=== PATIENT | female | born 1985 | race Caucasian/White ===

== ENCOUNTER 2024-04-07 09:07 | Outpatient (CLI) | payer OTHER, SELFPAY ==
--- NOTE | ~2024-04-07 | PE_ITS ---
EXAMINATION: PET skull to mid thigh DATE: 04/07/2024 11:17 INDICATION: Solitary pulmonary nodule. TECHNIQUE: Blood glucose level was 90 mg/dL. 10.285 mCi of 18-fluorodeoxyglucose (18-FDG) was adminis tered i.v. Low dose computed tomography (CT) images were acquired from the base of the brain to the p roximal thighs for attenuation correction and anatomic localization. Automated exposure control was e mployed. Dose-length product (DLP) was 633 mGy-cm. Positron emission tomography (PET) images were acq uired in the same distribution. COMPARISON: None FINDINGS: Head/neck: There are no pathologically enlarged lymph nodes. Chest: The lungs demonstrate mild atelectasis. There is a 9 mm nodule in right lung lower lobe with m aximum SUV of 1.6. No pleural effusion. The heart size is normal. No pericardial effusion. There are bilateral breast implants. There is a normal-sized right hilar lymph node with maximum SUV of 3.9. Abdomen/pelvis/proximal thighs: The liver, gallbladder, spleen, pancreas, adrenal glands, and kidneys are normal. There is an intrauterine device in expected position. There are no dilated loops of omar l. The appendix is normal. There are no pathologically enlarged lymph nodes. There is no free intrape ritoneal fluid. There is no osseous malignancy. IMPRESSION: 1. 9 mm nodule in right lung lower lobe without increased activity, probably benign. Noncontrast low- dose chest CT is recommended in 6 months. 2. Normal-sized right hilar lymph node with mildly increased activity, probably reactive. Reviewed, dictated and finalized at location A. IMPRESSION: 1. 9 mm nodule in right lung lower lobe without increased activity, probably be nign. Noncontrast low-dose chest CT is recommended in 6 months. 2. Normal-sized right hilar lymph node with mildly increased activity, probably reactive.
[2024-04-07 09:32] LABS: Glucose Point of Care 90 mg/dl (65-105)
== END 2024-04-07 09:08 | disposition home or self-care (01) ==
PROVIDERS: Visit Provider Internal Medicine Pulmonary Disease
DX: R91.1 Solitary pulmonary nodule (principal)
CPT/HCPCS: 78815; A9552

== ENCOUNTER 2025-01-28 09:12 | Outpatient (CLI) | payer OTHER, SELFPAY ==
--- NOTE | ~2025-01-28 | PE_ITS ---
EXAMINATION: PET skull to mid thigh DATE: 01/28/2025 10:53 INDICATION: Lung nodule TECHNIQUE: Blood glucose level was 90 mg/dL. 10.285 mCi of 18-fluorodeoxyglucose (18-FDG) was adminis tered i.v. Low dose computed tomography (CT) images were acquired from the base of the brain to the p roximal thighs for attenuation correction and anatomic localization. Positron emission tomography (PE T) images were acquired in the same distribution beginning 52 minutes after injection. Images includi ng fused PET/CT images were reconstructed in axial, coronal, and sagittal planes. Automated exposure control technique was employed. The dose-length product was 523.30mGy-cm. COMPARISON: None FINDINGS: Head/neck: There is symmetric increased activity in the oral cavity, palatine tonsils, parotid glands, submandi bular glands, laryngeal muscles and ocular muscles without CT correlate, likely physiologic. No patho logically enlarged cervical lymphadenopathy or suspicious foci of increased FDG uptake in the visuali zed head or neck. Chest: Mild dependent atelectasis in bilateral lower lobes. No interval change in a 10 x 8 mm pleural-based right lower lobe nodule along the apex of the dome of the right hemidiaphragm which remains without F DG uptake discernible above the level of the diaphragm. Heart size is normal. No pericardial effusion . Thoracic aorta is normal in caliber. Bilateral breast implants. Unchanged <1 cm focus of increased FDG uptake with maximal SUV of 5.3 at the right hilum likely related to a normal sized right hilar ly mph node. No pathologically enlarged or other abnormal FDG avid thoracic lymphadenopathy. Abdomen/pelvis/proximal thighs: Physiologic renal accumulation and excretion of FDG activity in the kidneys, bladder and along portio ns of ureters. Normal degree and heterogenous pattern of increased uptake throughout the liver withou t radiologic correlate or dominant FDG avid lesion. The gallbladder, pancreas, spleen and bilateral a drenal glands are normal. Again seen is a T-shaped IUD in expected position within the anteverted landy stephanie. Approximately 1.5 cm focus of mild increased uptake with maximal SUV of 9.5 located medial to th e left external iliac vein which appears separate from the more posterior left ovary. The lesion abut s and is unable to be clearly distinguish from the vein and uterine fundus with differential includin g enlarged lymph node or uterine fibroid. Mild uptake scattered throughout the bowels without radiolo gic correlate, also likely physiologic. No other abnormal foci of increased FDG uptake or pathologica lly enlarged lymphadenopathy in the abdomen, pelvis or proximal thighs. Musculoskeletal: No suspicious lytic, blastic or abnormally FDG avid bone lesions to suggest metastatic disease. IMPRESSION: 1. No increased uptake associated with an unchanged 9 mm pleural-based right lower lobe nodule along the right hemidiaphragm. While this is reassuring and strongly favors benign sequela of old granuloma tous disease would recommend additional 1 year follow-up low-dose noncontrast chest CT. 2. Persistent mild increased uptake associated with a normal-sized right hilar lymph node which is li edilberto reactive. 3. New proximally 1.5 cm focus of moderate increased uptake in the left pelvis abutting the left side of the uterine fundus and the left external iliac vein which could represent a lymph node or uterine fibroid. If the former differential would include reactive lymph node, metastatic disease or lymphom a. Could consider further evaluation with pelvic ultrasound or postcontrast CT or MRI. Reviewed, dictated and finalized at location A. IMPRESSION: 1. No increased uptake associated with an unchanged 9 mm pleural-based right lo wer lobe nodule along the right hemidiaphragm. While this is reassuring and str ongly favors benign sequela of old granulomatous disease would recommend additi onal 1 year follow-up low-dose noncontrast chest CT. 2. Persistent mild increased uptake associated with a normal-sized right hilar lymph node which is likely reactive. 3. New proximally 1.5 cm focus of moderate increased uptake in the left pelvis abutting the left side of the uterine fundus and the left external iliac vein w hich could represent a lymph node or uterine fibroid. If the former differentia l would include reactive lymph node, metastatic disease or lymphoma. Could cons ider further evaluation with pelvic ultrasound or postcontrast CT or MRI.
--- OUTSIDE RECORDS SUMMARY | 2025-01-28 09:35 | XMS_ITS | Clinical Summary ---
Author Organization [facility] Address [address] [place] [id number] Care Team Providers Care Material Worker Name Role Phone Nikko Olmedo Primary Care Provide r Allergies No known active allergies Medications No known medications Active Problems No known active problems Social History Tobacco Use Types Packs/Day Years Used Date Smoking Tobacco: Some Days Cigarettes Vaping Tobacco Cessation:Ready to Q uit: Not Asked; Counseling Given: Not Answered Personal Safety Answer Date Recorded Getting School Help Needed Not on file 10/21 Comments Unknown Sex and Gender Information Value Date Recorded Sex Assigned at Not on file Legal Sex Female 9:25 AM CDT Gender Identity Not on file Sexual Orientation Not on file Obstetrics History Last Filed Vital Signs Vital Sign Reading Time Taken Comments Blood Pressure 112/71 11/05/2023 10:17 AM CDT Pulse 93 11/05/2023 10:17 AM CDT Temperature - - Respiratory Rate - - Oxygen Saturation 96% 11/05/2023 10:17 AM CDT Inhaled Oxygen Concentration - - Weight - - Height - - Body Mass Index - - Plan of Treatment Health Maintenance Due Date Last Done Comments Breast Cancer Screening-Mammogram 1984 Cervical Cancer Screening 1984 Depression Screening 1984 Hepatitis C Screening 1984 DTaP/Tdap/Td Vaccine (1 - Tdap) 09/08/1995 Varicella Vaccines (1 of 2 - 13+ 2-dose series) 1997 Hepatitis B Screening 2002 Regular Well Visit/Exam 18-64 2002 Pneumococcal vaccine <65 (1 of 2 - PCV) 09/08/2003 HPV Vaccines (1 - 3-dose SCDM series) 09/08/2011 Covid-19 Vaccine ( season) 03/01/202408/2020, 12/03/2020 Influenza Vaccine (#1) 2025 Insurance [facility] Care Teams Material Worker Relationship Specialty Start Date End Date Nikko Olmedo PA [address] [place] [address] PCP - General Physician Lockstitch Collar Setter 10/22/23
--- OUTSIDE RECORDS SUMMARY | 2025-01-28 09:35 | XMS_ITS | Referral Summary ---
Author Organization [address] [id number] Care Team Providers Care Financial Economist Name Role Phone Nikko Olmedo Primary Care [...] on file Sexual Orientation Not on file Last Filed Vital Signs Vital Sign Reading Time Taken Comments Blood Pressure 112/71 11/05/2023 10:17 AM CDT Pulse 93 11/05/2023 10:17 AM CDT Temperature - - Respiratory Rate - - Oxygen Saturation 96% 11/05/2023 10:17 AM CDT Inhaled Oxygen Concentration - - Weight - - Height - - Body Mass Index - - Plan of Treatment Not on file Insurance [facility] Care Teams Financial Economist Relationship Specialty Start Date End Date Nikko Olmedo PA [address] [place] [address] PCP - General Physician Still Operator Helper 10/22/23
--- OUTSIDE RECORDS SUMMARY | 2025-01-28 09:36 | XMS_ITS ---
2017 1353 ------- ------- ------- ------- -- CAC/DJO /APPT FOR MEDS REFILL JEANNIE ENRIQUEZ 10/17 [employer](T roop_AD Only) [facility](BOM C 1 Phys Exams) OUTPATIENT [id number] MHA 201 2001 PHIL BATEMAN 10/22 Released w/o Limitations [employer](B OMC 1 Phys Exams) [facility](Tro op_AD Only) OUTPATIENT [id number] PRESTON FUENTES 10/22 Released w/o Limitations [facility](T roop_AD Only) [facility](Tro op_AD Only) TELE CONSULT [id number] Notes Entered by: ANN JETT 03 Jan 2018 0815 ------- ------- ------- ------- -- CAC/DJO /MED REFILL 16 DAYS LEFT PAWAN VALDEZ 01/03 [facility](T roop_AD Only) [facility](Jose Antonio eficiarie s_Non-AD Only) OUTPATIENT [id number] F/U MEDICAT ION UPDATE PROFILE EDDIE GOLDMAN 02/07 Released with Work/Duty Limitations [facility](B enefici aries_N on-AD Only) [facility](Jose Antonio eficiarie s_Non-AD Only) OUTPATIENT [id number] Routine RX follow up for refill EDDIE GOLDMAN 03/14 Released w/o Limitations [facility](B enefici aries_N on-AD Only) [facility](BOM C 1 Phys Exams) OUTPATIENT [id number] dhra 1 PHIL BATEMAN 03/25 Released w/o Limitations [facility](B OMC 1 Phys Exams) [facility](Jose Antonio eficiarie s_Non-AD Only) OUTPATIENT [id number] To be cleared pre-dep loyment EDDIE GOLDMAN 04/09 Released w/o Limitations [facility](B enefici aries_N on-AD Only) [facility](Curriculum Development Coordinator [facility]) OUTPATIENT [id number] Pap-Pre deploym ent LAILA ABDUL Kimani 04/29 Released w/o Limitations [facility](G ynecolo gy [facility]) [facility](Curriculum Development Coordinator [facility]) TELE CONSULT [id number] Notes Entered by: DO SILVIA GOFF 14 May 2018 1448 ------- ------- ------- ------- -- Repeat PAP ISABELLA GOFF 05/14 [employer](G y[facility]colo [facility] Clinic) [facility](Jose Antonio eficiarie s_Non-AD Only) OUTPATIENT [id number] Routine 3 month appt for prescri ption (deploy ing Jun 17) EDDIE GOLDMAN 06/13 Released w/o Limitations [facility](B enefici aries_N on-AD Only) [facility](Jose Antonio eficiarie s_Non-AD Only) TELE CONSULT [id number] 1 Notes Entered by: Rigo CONLEY 26 Jun 2018 0905 ------- ------- ------- ------- -- Virtual comm/ express LETICIA Wood 06/26 Referred for Appointment [facility](B enefici aries_N on-AD Only) [facility] OUTPATIENT [id number] Theater Provider 07/04 Released w/o Limitations [facility] OUTPATIENT [id number] Theater Provider 08/14 Released w/o Limitations [facility] OUTPATIENT [id number] Theater Provider 09/06 Released w/o Limitations [facility] OUTPATIENT [id number] Theater Provider 10/06 Released w/o Limitations Theater Facilit y [facility](Tro op_AD Only) OUTPATIENT [id number] Follow up for Medicat ion (Routin e) Napoleoni sandhya from deploym angela DERIK LUANN Sierar 11/05 Released w/o Limitations [facility](T roop_AD Only) [facility](Tro op_AD Only) TELE CONSULT [id number] Notes Entered by: JAYLIN HARLEY 13 Jan 2019 1018 ------- ------- ------- ------- -- CAC/KCH //ADHD- MED REFILLS -15 DAYS LEFT NANCY FUENTES 01/13 Released w/o Limitations [facility](T roop_AD Only) [facility](BOM C 1 Phys Exams) OUTPATIENT [id number] PHIL BATEMAN 02/05 Released w/o Limitations [facility](B [facility] 1 Phys Exams) [facility](Tro op_AD Only) OUTPATIENT [id number] Notes Entered by: ALBERTO OAKES 06 Feb 2019 1001 ------- ------- ------- ------- -- Z-PHAQ NANCY FUENTES 02/06 Released w/o Limitations [facility](T roop_AD Only) [facility](Tro op_AD Only) OUTPATIENT [id number] F/U MEDS NANCY FUENTES 04/27 Released w/o Limitations [facility](T roop_AD Only) [facility](Tro op_AD Only) OUTPATIENT [id number] HEADACH E/RUNNY NOSE/CO CHRIS SILVEIRA 06/08 Sick at Home/Quarter s [facility](T roop_AD Only) [facility](Tro op_AD Only) TELE CONSULT [id number] Notes Entered by: EMANUEL HARRY 21 Jul 2019 1105 ------- ------- ------- ------- -- CAC/DB/ MED REFILL/ 6 DAYS LEFT NANCY FUENTES 07/21 [facility](T roop_AD Only) [facility](Tro op_AD Only) TELE CONSULT [id number] Notes Entered by: Raymond GARCIA 22 Jul 2019 1600 ------- ------- ------- ------- -- Medicat ion LETICIA Darden 07/22 [facility]ice Assessment [facility](T roop_AD Only) [facility](Tro op_AD Only) OUTPATIENT [id number] Notes Entered by: JANICE GAMINO 11 Aug 2019 0807 ------- ------- ------- ------- -- WALK-IN - UTI clinic NANCY FUENTES 08/11 Released w/o Limitations [employer](T roop_AD Only) [facility](Tro op_AD Only) TELE CONSULT [id number] Notes Entered by: JAYLIN HARLEY 28 Sep 2019 0950 ------- ------- ------- ------- -- CAC/[facility] //MED REFILL- ADDERAL L-24 LEFT SHAINA ELLIS 09/27 [facility](T roop_AD Only) [facility](Tro op_AD Only) OUTPATIENT [id number] F2F Adderal l refNANCY Chaudhari 09/27 Released w/o Limitations [facility](T roop_AD Only) [facility](Tro op_AD Only) TELE CONSULT [id number] Notes Entered by: KELSEY GR 18 Dec 2019 1422 ------- ------- ------- ------- -- Network Result- Curriculum Development Coordinator Consult 08/31/19 NANCY FUENTES 12/17 [facility](T roop_AD Only) [facility](Tro op_AD Only) TELE CONSULT [id number] Notes Entered by: AUSTEN KING 29 Dec 2019 1239 ------- ------- ------- ------- -- CAC/LM- F2F APPT REQUEST /MED F/U LETICIA MUÑIZ 12/28 Referred for Appointment [employer](T roop_AD Only) [facility](Tro op_AD Only) OUTPATIENT [id number] r/s F2F F/u medicat rigo NEWAntoinetteCITLALLI DUBOISOPHELIA Sierra 01/12 Released w/o Limitations [employer](T roop_AD Only) [employer](Tro op_AD Only) TELE CONSULT [id number] Notes Entered by: EDGAR PASTOR 15 Jan 2020 1049 ------- ------- ------- ------- -- CAC/NR, APPT.MERLENE REILLY , PT NOT RECEIVE D CALL BACK FOR VIRTUAL FOR MEDICAT RIGO MUÑIZ LETICIA 01/14 Referred for Appointment [facility](T roop_AD Only) [facility](BOM C 1 Non-Clini lisette) OUTPATIENT [id number] Notes Entered by: MAGALIE SEWELL 22 Feb 2020 1338 ------- ------- ------- ------- -- PCS medical MERCEDES Oliver 02/21 Released w/o Limitations [facility](B OMC 1 Non-Cli nical) [facility](Fam marlon Practice BHOP/Coum vitor) OUTPATIENT [id number] MHA [phone] OXANA BINGHAM 02/22 Released w/o Limitations [facility](F amily Practic e BHOP/Co umadin) [facility](Tro op_AD Only) OUTPATIENT [id number] NANCY LUZ 03/09 Released w/o Limitations [facility](T roop_AD Only) [facility](Tro op_AD Only) TELE CONSULT [id number] Notes Entered by: JAYLIN HARLEY 31 Mar 2020 1328 ------- ------- ------- ------- -- CAC/KCH //MED REFILL- DIANE HENDERSON 03/31 [facility]ice Assessment [facility](T roop_AD Only) [address] [place] [address])(War rior Op Med Cln Tm A Ad) TELE CONSULT [id number] Notes Entered by: HORTENCIA KIRK 08 Jul 2020 0736 ------- ------- ------- ------- -- Adderal l refill NICHOLAS RICHARDSON 07/[address] [place] [address])(W arrior Op Med Cln Tm A Ad) [address] [place] [address])(Opt ometry) OUTPATIENT [id number] Routine Eye Exam MARILEE VICENTE 08/05 Released w/o Limitations [address] [place] [address])(O ptometr y) [address] [place] [address])(War rior Op Med Cln Tm A Ad) OUTPATIENT [id number] medicat ions MIGDALIA PURCELL 09/26 Released w/o Limitations [address] [place] [address])(W arrior Op Med Cln Tm A Ad) [address] [place] [address])(War rior Op Med Cln Tm A Ad) OUTPATIENT [id number] medicat ion renewal s NICHOLAS RICHARDSON 12/21 Released w/o Limitations [address] [place] [address])(W arrior Op Med Cln Tm A Ad) [address] [place] [address])(War rior Op Med Cln Tm A Ad) TELE CONSULT [id number] Notes Entered by: NICK CELESTE 07 Mar 2021 1434 ------- ------- ------- ------- -- [place] - - ROBERTH Bo 03/07 Medication Refill Forwarded [address] [place] [address])(W arrior Op Med Cln Tm A Ad) [address] [place] [address])(War rior Op Med Cln Tm A Ad) OUTPATIENT [id number] F2F - medicat ion renewal - NICHOLAS MONROE 04/04 Released w/o Limitations [address] [place] [address])(W arrior Op Med Cln Tm A Ad) [address] [place] [address])(War rior Op Med Cln Tm A Ad) TELE CONSULT [id number] 5 Notes Entered by: LALITHA MONROE 17 Apr 2021 1646 ------- ------- ------- ------- -- US finding s ROBERTH BELTRÁN 04/17 Referred for Appointment [address] [place] [address])(W arrior Op Med Cln Tm A Ad) [address] [place] [address])(Carter matology) OUTPATIENT [id number] Neoplas m of uncerta in behavio r of meninge s, unspeci fied EDDIE WILCOX 05/22 Released w/o Limitations [address] [place] [address])(D ermatol ogy) [address] [place] [address])(War rior Op Med Cln Tm A Ad) TELE CONSULT [id number] 5 Notes Entered by: TREVOR GRAMAJO 19 Jun 2021 1540 ------- ------- ------- ------- -- med renewal /ora e/[phone] SIDDHARTH Dhillon 06/19 Released to Self Care [address] [place] [address])(W arrior Op Med Cln Tm A Ad) [address] [place] [address])(Carter matology) OUTPATIENT [id number] F/u lipoma check EDDIE WILCOX 08/15 Released w/o Limitations [address] [place] [address])(D ermatol ogy) [address] [place] [address])(Carter matology) TELE CONSULT [id number] Notes Entered by: EDDIE BRIONES 22 Aug 2021 1117 ------- ------- ------- ------- -- biopsy result EDDIE WILCOX 08/[address] [place] [address])(D ermatol ogy) [address] [place] [address])(Carter matology) OUTPATIENT [id number] Lipoma excisio n EDDIE WILCOX 08/29 Released w/o Limitations [address] [place] [address])(D ermatol ogy) [address] [place] [address])(Bas e Operation al Medicine Clin) TELE CONSULT [id number] Notes Entered by: Juan C AHUMADA 29 Aug 2021 1118 ------- ------- ------- ------- -- PHA DONNA Sexton 08/29 Released to Self Care [address] [place] [address])(B ase Operati onal Medicin e Clin) [address] [place] [address])(Carter matology) TELE CONSULT [id number] 6 Notes Entered by: EDDIE BRIONES 05 Sep 2021 1121 ------- ------- ------- ------- -- excisio n result LUL OROPEZA 09/05 Released to Self Care [address] [place] [address])(D ermatol ogy) [address] [place] [address])(Carter matology) OUTPATIENT [id number] Notes Entered by: DILAN NOLAN 2021 0810 ------- ------- ------- ------- -- suture removal EDDIE WILCOX 09/07 Released w/o Limitations [address] [place] [address])(D ermatol ogy) [address] [place] [address])(War rior Op Med Cln Tm A Ad) TELE CONSULT [id number] Notes Entered by: EDVIN BRAY 22 Sep 2021 0726 ------- ------- ------- ------- -- ROBERTH Valenzuela 09/22 Medication Refill Forwarded [address] [place] [address])(W arrior Op Med Cln Tm A Ad) [address] [place] [address])(Bas e Operation al Medicine Clin) OUTPATIENT [id number] [facility] LUZMARIA HINSON 09/22 Released w/o Limitations [address] [place] [address])(B ase Operati onal Medicin e Clin) [address] [place] [address])(War rior Op Med Cln Tm A Ad) OUTPATIENT [id number] refill medicat ion HC NICHOLAS RICHARDSON 10/05 Released w/o Limitations [address] [place] [address])(W arrior Op Med Cln Tm A Ad) [address] [place] [address])(War rior Op Med Cln Tm A Ad) TELE CONSULT [id number] Notes Entered by: DELANO TRUJILLO 11 Dec 2021 1009 ------- ------- ------- ------- -- F/U Appt Request - Med Renewal / Caroline / KIRAN DALTON 12/[address] [place] [address])(W arrior Op Med Cln Tm A Ad) [address] [place] [address])(War rior Op Med Cln Tm A Ad) OUTPATIENT [id number] FTF: addlashella KIRAN Weeks 01/08 Released w/o Limitations [address] [place] [address])(W arrior Op Med Cln Tm A Ad) [address] [place] [address])(War rior Op Med Cln Tm A Ad) TELE CONSULT [id number] Notes Entered by: JOIE ACOSTA 27 Feb 2022 0823 ------- ------- ------- ------- -- Patient Admissi on JEWEL GAGE Beryl 02/[address] [place] [address])(W arrior Op Med Cln Tm A Ad) [address] [place] [address])(War rior Op Med Cln Tm A Ad) TELE CONSULT [id number] Notes Entered by: JOIE ACOSTA 28 Feb 2022 0946 ------- ------- ------- ------- -- Patient Dischar ge JEWEL GAGE Beryl 02/[address] [place] [address])(W arrior Op Med Cln Tm A Ad) [address] [place] [address])(Curriculum Development Coordinator ecology) OUTPATIENT [id number] ER f/u post rupture d ovarian cyst Aug RACHAEL RIVERO 03/09 Released w/o Limitations [address] [place] [address])(G ytawnycosuzanne gy) [address] [place] [address])(War rior Op Med Cln Tm A Ad) TELE CONSULT [id number] Notes Entered by: DELANO TRUJILLO 04 May 2022 1511 ------- ------- ------- ------- -- Med Renewal Request / [facility] / RUBEN HERNANDEZ 05/04 Medication Refill Forwarded [address] [place] [address])(W arrior Op Med Cln Tm A Ad) [address] [place] [address])(War rior Op Med Cln Tm A Ad) TELE CONSULT [id number] Notes Entered by: YARITZA JUAN 30 May 2022 09 ------- ------- ------- ------- -- Urgent Care ReferNANCY Lloyd 05/30 Referred for Appointment [address] [place] [address])(W arrior Op Med Cln Tm A Ad) [address] [place] [address])(War rior Op Med Cln Tm A Ad) OUTPATIENT [id number] F2F - medicat ion renewal , arsalanyuki cordoba on spleen, [phone] DEMI OSORIO 07/23 Released w/o Limitations [address] [place] [address])(W arrior Op Med Cln Tm A Ad) [address] [place] [address])(War rior Op Med Cln Tm A Ad) TELE CONSULT [id number] Notes Entered by: DELANO TRUJILLO 25 Oct 2022 1109 ------- ------- ------- ------- -- Med Bridge Request / Foreign kumar/ ROBERTH BELTRÁN 10/25 Medication Refill Forwarded [address] [place] [address])(W arrior Op Med Cln Tm A Ad) [address] [place] [address])(Bas e Operation al Medicine Clin) OUTPATIENT [id number] VIRTUAL ADAF MHA/PHA . 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,Segm ental and somatic dysfunc tion of lumbar region, Segment al and somatic dysfunc tion of cervica l region, Other spondyl osis, cervica l region, Segment al and somatic dysfunc tion of sacral region, Segment al and somatic dysfunc tion of thoraci c region MANAV PURDY AYNOR 12/09 Discharge Disposition: Home or Self Care [address] [facility] Outpatient [id number] Cervica lgia,Lo w back pain, unspeci fied,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 MARGOTH BUCHANAN 12/10 Discharge Disposition: Home or Self Care [address] [place] [address] [facility] Outpatient [id number] Segment al and somatic dysfunc tion of lumbar region, Segment al and somatic dysfunc tion of thoraci c region, Other congeni dwight malform ations of spine, 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,Segm ental and somatic dysfunc tion of cervica l region, Other spondyl osis, cervica l region [facility] 01/08 Discharge Disposition: Home or Self Care [address] [place] [address] [facility] Outpatient [id number] Other spondyl osis, cervica l region, Segment al and somatic dysfunc tion of thoraci c region, Segment al and somatic dysfunc tion of cervica l region, Segment al and somatic dysfunc tion of lumbar region, Segment al and somatic dysfunc tion of sacral region, Other congeni dwight malform ations of spine, 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 Procedure Procedure Type Code Date Perfomer Comments Sourc e BRIEF EMOTIONAL/BEHAVIORAL ASSESSMENT (EG, DEPRESSION INVENTORY, ATTENTION-DEFICIT/HYP ERACTIVITY DISORDER [ADHD] SCALE), WITH SCORING AND DOCUMENTATION, PER STANDARDIZED INSTRUMENT 023 [facility] TELE ASSESS & MGT SRV PROV QUAL NONPHYS HLTH CARE PRO TO EST PAT,PARENT,GUARD NOT ORIG REL ASSESS & MGT SRV PROV W/IN PREV 7 DAYS NOR LEAD ASSESS & MGT SRV/PX W/IN NXT 24 HR/SOON APT;5-10 MIN MED DIS DoD TELE ASSESS & MGT SRV PROV QUAL NONPHYS HLTH CARE PRO TO EST PAT,PARENT,GUARD NOT ORIG REL ASSESS & MGT SRV PROV W/IN PREV 7 DAYS NOR LEAD ASSESS & MGT SRV/PX W/IN NXT 24 HR/SOON APT;5-10 MIN MED DIS DoD TELE ASSESS & MGT SRV PROV QUAL NONPHYS HLTH CARE PRO TO EST PAT,PARENT,GUARD NOT ORIG REL ASSESS & MGT SRV PROV W/IN PREV 7 DAYS NOR LEAD ASSESS & MGT SRV/PX W/IN NXT 24 HR/SOON APT;5-10 MIN MED DIS DoD TELE ASSESS & MGT SRV PROV QUAL NONPHYS HLTH CARE PRO TO EST PAT,PARENT,GUARD NOT ORIG REL ASSESS & MGT SRV PROV W/IN PREV 7 DAYS NOR LEAD ASSESS & MGT SRV/PX W/IN NXT 24 HR/SOON APT;5-10 MIN MED DIS [facility] WAIVER SERVICES; NOT OTHERWISE SPECIFIED (NOS) [facility] QUALIFIED NONPHYSICIAN HEALTH SAMPLE DISPLAY PREPARER ONLINE DIGITAL ASSESSMENT AND MANAGEMENT, FOR AN ESTABLISHED PATIENT, FOR UP TO 7 DAYS, CUMULATIVE TIME DURING THE 7 DAYS; 5-10 MINUTES DoD TELE ASSESS & MGT SRV PROV QUAL NONPHYS HLTH CARE PRO TO EST PAT,PARENT,GUARD NOT ORIG REL ASSESS & MGT SRV PROV W/IN PREV 7 DAYS NOR LEAD ASSESS & MGT SRV/PX W/IN NXT 24 HR/SOON APT;5-10 MIN MED DIS [facility] REPAIR, INTERMEDIATE, WOUNDS OF SCALP, AXILLAE, TRUNK AND/OR EXTREMITIES (EXCLUDING HANDS AND FEET); 2.6 CM TO 7.5 CM [facility] TANGENTIAL BIOPSY OF SKIN (EG, SHAVE, SCOOP, SAUCERIZE, CURETTE); SINGLE LESION DoD TELE ASSESS & MGT SRV PROV QUAL NONPHYS HLTH CARE PRO TO EST PAT,PARENT,GUARD NOT ORIG REL ASSESS & MGT SRV PROV W/IN PREV 7 DAYS NOR LEAD ASSESS & MGT SRV/PX W/IN NXT 24 HR/SOON APT;5-10 MIN MED DIS 021 DoD TELE ASSESS & MGT SRV PROV QUAL NONPHYS HLTH CARE PRO TO EST PAT,PARENT,GUARD NOT ORIG REL ASSESS & MGT SRV PROV W/IN PREV 7 DAYS NOR LEAD ASSESS & MGT SRV/PX W/IN NXT 24 HR/SOON APT;5-10 MIN MED DIS DoD TELE ASSESS & MGT SRV PROV QUAL NONPHYS HLTH CARE PRO TO EST PAT,PARENT,GUARD NOT ORIG REL ASSESS & MGT SRV PROV W/IN PREV 7 DAYS NOR LEAD ASSESS & MGT SRV/PX W/IN NXT 24 HR/SOON APT;5-10 MIN MED DIS [facility] WAIVER SERVICES; NOT OTHERWISE SPECIFIED (NOS) [facility] DETERMINATION OF REFRACTIVE STATE [facility] PSYCHIATRIC EVALUATION OF HOSPITAL RECORDS, OTHER PSYCHIATRIC REPORTS, PSYCHOMETRIC AND/OR PROJECTIVE TESTS, AND OTHER ACCUMULATED DATA FOR MEDICALDIAGNOSTIC PURPOSES [facility] SCANNING COMPUTERIZED OPHTHALMIC DIAGNOSTIC IMAGING, POSTERIOR SEGMENT, WITH INTERPRETATION AND REPORT, UNILATERAL OR BILATERAL; OPTIC NERVE [facility] FITTING OF SPECTACLES, EXCEPT FOR APHAKIA; MONOFOCAL [facility] INFLUENZA VIRUS VACCINE, QUADRIVALENT, LIVE (LAIV4), FOR INTRANASAL USE [facility] POSTOPERATIVE FOLLOW-UP VISIT, NORMALLY INCLUDED IN THE SURGICAL PACKAGE, INDICATE THAT EVALUATION & MANAGEMENT SERVICE WAS PERFORMED DURING A POSTOPERATIVE PERIOD REASON RELATED ORIGINAL PROCEDURE DoD PSYCHOTHERAPY, 30 MINUTES WITH PATIENT WHEN PERFORMED WITH AN EVALUATION AND MANAGEMENT SERVICE (LIST SEPARATELY IN ADDITION TO THE CODE FOR PRIMARY PROCEDURE) DoD PSYCHOTHERAPY, 60 MINUTES WITH PATIENT [facility] PSYCHIATRIC DIAGNOSTIC EVALUATION DoD PSYCHOTHERAPY, 30 MINUTES WITH PATIENT WHEN PERFORMED WITH AN EVALUATION AND MANAGEMENT SERVICE (LIST SEPARATELY IN ADDITION TO THE CODE FOR PRIMARY PROCEDURE) [facility] SCREENING PAPANICOLAOU SMEAR; OBTAINING, PREPARING AND CONVEYANCE OF CERVICAL OR VAGINAL SMEAR TO LABORATORY DoD PSYCHOTHERAPY, 30 MINUTES WITH PATIENT WHEN PERFORMED WITH AN EVALUATION AND MANAGEMENT SERVICE (LIST SEPARATELY IN ADDITION TO THE CODE FOR PRIMARY PROCEDURE) [facility] PATIENT EDUCATION, NOT OTHERWISE CLASSIFIED, NON-PHYSICIAN PROVIDER, GROUP, PER SESSION [facility] FITTING OF SPECTACLES, EXCEPT FOR APHAKIA; MONOFOCAL [facility] SCREENING TEST OF VISUAL ACUITY, QUANTITATIVE, BILATERAL [facility] NONINVASIVE EAR OR PULSE OXIMETRY FOR OXYGEN SATURATION; SINGLE DETERMINATION [facility] PHARMACOLOGIC MANAGEMENT, INCLUDING PRESCRIPTION, USE, AND REVIEW OF MEDICATION WITH NO MORE THAN MINIMAL MEDICAL PSYCHOTHERAPY [facility] REMOVAL OF INTRAUTERINE DEVICE (IUD) [facility] PHARMACOLOGIC MANAGEMENT, INCLUDING PRESCRIPTION, USE, AND REVIEW OF MEDICATION WITH NO MORE THAN MINIMAL MEDICAL PSYCHOTHERAPY [facility] ADMINISTRATION OF PATIENT-FOCUSED HEALTH RISK ASSESSMENT INSTRUMENT (EG, HEALTH HAZARD APPRAISAL) WITH SCORING AND DOCUMENTATION, PER STANDARDIZED INSTRUMENT [facility] BRIEF COMM TECH-BASE SERV,E.G. VIRT CHK-IN,BY PHYS/OTH QUAL HCP,RPT E&M SERV,PROV TO EST PT,NOT ORIG FRM REL E/M SERV PROV W/IN PREV 7DAY NOR LEAD TO E/M SRV/PX W/IN NEXT 24HR/SOON MICHOACANO; 5-10 MIN DISC DoD TELE ASSESS & MGT SRV PROV QUAL NONPHYS HLTH CARE PRO TO EST PAT,PARENT,GUARD NOT ORIG REL ASSESS & MGT SRV PROV W/IN PREV 7 DAYS NOR LEAD ASSESS & MGT SRV/PX W/IN NXT 24 HR/SOON APT;5-10 MIN MED DIS [facility] BRIEF COMM TECH-BASE SERV,E.G. VIRT CHK-IN,BY PHYS/OTH QUAL HCP,RPT E&M SERV,PROV TO EST PT,NOT ORIG FRM REL E/M SERV PROV W/IN PREV 7DAY NOR LEAD TO E/M SRV/PX W/IN NEXT 24HR/SOON MICHOACANO; 5-10 MIN DISC 020 DoD TELE ASSESS & MGT SRV PROV QUAL NONPHYS HLTH CARE PRO TO EST PAT,PARENT,GUARD NOT ORIG REL ASSESS & MGT SRV PROV W/IN PREV 7 DAYS NOR LEAD ASSESS & MGT SRV/PX W/IN NXT 24 HR/SOON APT;5-10 MIN MED DIS DoD TELE ASSESS & MGT SRV PROV QUAL NONPHYS HLTH CARE PRO TO EST PAT,PARENT,GUARD NOT ORIG REL ASSESS & MGT SRV PROV W/IN PREV 7 DAYS NOR LEAD ASSESS & MGT SRV/PX W/IN NXT 24 HR/SOON APT;5-10 MIN MED DIS [facility] ADMINISTRATION OF PATIENT-FOCUSED HEALTH RISK ASSESSMENT INSTRUMENT (EG, HEALTH HAZARD APPRAISAL) WITH SCORING AND DOCUMENTATION, PER STANDARDIZED INSTRUMENT DoD ONLINE ASSESS &MANAG SERV PROVIDE,A QUAL NONPHYS HCP TO AN ESTABLISHED PAT/GUARDIAN,NOT ORIGINAT FRM RELAT ASSESS &MANAG SERV PROVIDE W/IN THE PREV 7 DAYS,USE THE [employer] NETWORK DoD TELE ASSESS & MGT SRV PROV QUAL NONPHYS HLTH CARE PRO TO EST PAT,PARENT,GUARD NOT ORIG REL ASSESS & MGT SRV PROV W/IN PREV 7 DAYS NOR LEAD ASSESS & MGT SRV/PX W/IN NXT 24 HR/SOON APT;5-10 MIN MED DIS [facility] SCREENING PAPANICOLAOU SMEAR; OBTAINING, PREPARING AND CONVEYANCE OF CERVICAL OR VAGINAL SMEAR TO LABORATORY [facility] NEUROPSYCHOLOGICAL TESTING (EG, [place] CARD SORTING TEST), ADMINISTERED BY A COMPUTER, WITH QUALIFIED HEALTH SAMPLE DISPLAY PREPARER INTERPRETATION AND REPORT [facility] BRIEF EMOTIONAL/BEHAVIORAL ASSESSMENT (EG, DEPRESSION INVENTORY, ATTENTION-DEFICIT/HYP ERACTIVITY DISORDER [ADHD] SCALE), WITH SCORING AND DOCUMENTATION, PER STANDARDIZED INSTRUMENT [facility] PSYCHIATRIC EVALUATION OF HOSPITAL RECORDS, OTHER PSYCHIATRIC REPORTS, PSYCHOMETRIC AND/OR PROJECTIVE TESTS, AND OTHER ACCUMULATED DATA FOR MEDICALDIAGNOSTIC PURPOSES [facility] TELE ASSESS & MGT SRV PROV QUAL NONPHYS HLTH CARE PRO TO EST PAT,PARENT,GUARD NOT ORIG REL ASSESS & MGT SRV PROV W/IN PREV 7 DAYS NOR LEAD ASSESS & MGT SRV/PX W/IN NXT 24 HR/SOON APT;5-10 MIN MED DIS [facility] BRIEF EMOTIONAL/BEHAVIORAL ASSESSMENT (EG, DEPRESSION INVENTORY, ATTENTION-DEFICIT/HYP ERACTIVITY DISORDER [ADHD] SCALE), WITH SCORING AND DOCUMENTATION, PER STANDARDIZED INSTRUMENT [facility] ONLINE ASSESS &MANAG SERV PROVIDE,A QUAL NONPHYS HCP TO AN ESTABLISHED PAT/GUARDIAN,NOT ORIGINAT FRM RELAT ASSESS &MANAG SERV PROVIDE W/IN THE PREV 7 DAYS,USE THE INTERNET/[employer] NETWORK [facility] PSYCHIATRIC EVALUATION OF HOSPITAL RECORDS, OTHER PSYCHIATRIC REPORTS, PSYCHOMETRIC AND/OR PROJECTIVE TESTS, AND OTHER ACCUMULATED DATA FOR MEDICALDIAGNOSTIC PURPOSES [facility] EDUCATION &TRAINING, PATIENT SELF-MGT QUALIFIED, NONPHYSICIAN HEALTH SAMPLE DISPLAY PREPARER USING STDIZED CURRICULUM, [id number] W THE PATIENT (COULD INCL CAREGIVER/FAMILY) EA 30 MIN; INDIVIDUAL PATIENT DoD EDUCATION &TRAINING, PATIENT SELF-MGT QUALIFIED, NONPHYSICIAN HEALTH SAMPLE DISPLAY PREPARER USING STDIZED CURRICULUM, [id number] W THE PATIENT (COULD INCL CAREGIVER/FAMILY) EA 30 MIN; INDIVIDUAL PATIENT DoD EDUCATION &TRAINING, PATIENT SELF-MGT QUALIFIED, NONPHYSICIAN HEALTH SAMPLE DISPLAY PREPARER USING STDIZED CURRICULUM, [id number] W THE PATIENT (COULD INCL CAREGIVER/FAMILY) EA 30 MIN; INDIVIDUAL PATIENT DoD EDUCATION &TRAINING, PATIENT SELF-MGT QUALIFIED, NONPHYSICIAN HEALTH SAMPLE DISPLAY PREPARER USING STDIZED CURRICULUM, [id number] W THE PATIENT (COULD INCL CAREGIVER/FAMILY) EA 30 MIN; INDIVIDUAL PATIENT [facility] BRIEF EMOTIONAL/BEHAVIORAL ASSESSMENT (EG, DEPRESSION INVENTORY, ATTENTION-DEFICIT/HYP ERACTIVITY DISORDER [ADHD] SCALE), WITH SCORING AND DOCUMENTATION, PER STANDARDIZED INSTRUMENT [facility] MANUAL THERAPY TECHNIQUES (EG, MOBILIZATION/ MANIPULATION, MANUAL LYMPHATIC DRAINAGE, MANUAL TRACTION), 1 OR MORE REGIONS, EACH 15 MINUTES [facility] PSYCHIATRIC EVALUATION OF HOSPITAL RECORDS, OTHER PSYCHIATRIC REPORTS, PSYCHOMETRIC AND/OR PROJECTIVE TESTS, AND OTHER ACCUMULATED DATA FOR MEDICALDIAGNOSTIC PURPOSES [facility] ENVIRONMENTAL INTERVENTION FOR MEDICAL MGMT PURPOSES ON A PSYCHIATRIC PATIENT'S BEHALF WITH AGENCIES, EMPLOYERS, OR INSTITUTIONS [facility] THERAPEUTIC PROCEDURE, 1 OR MORE AREAS, EACH 15 MINUTES; THERAPEUTIC EXERCISES TO DEVELOP STRENGTH AND ENDURANCE, RANGE OF MOTION AND FLEXIBILITY [facility] APPLICATION OF A MODALITY TO 1 OR MORE AREAS; HOT OR COLD PACKS [facility] SCREENING PAPANICOLAOU SMEAR; OBTAINING, PREPARING AND CONVEYANCE OF CERVICAL OR VAGINAL SMEAR TO LABORATORY DoD APPLICATION OF A MODALITY TO 1 OR MORE AREAS; HOT OR COLD PACKS [facility] THERAPEUTIC PROCEDURE, 1 OR MORE AREAS, EACH 15 MINUTES; THERAPEUTIC EXERCISES TO DEVELOP STRENGTH AND ENDURANCE, RANGE OF MOTION AND FLEXIBILITY [facility] PHYSICAL THERAPY EVALUATION [facility] TELE ASSESS & MGT SRV PROV QUAL NONPHYS HLTH CARE PRO TO EST PAT,PARENT,GUARD NOT ORIG REL ASSESS & MGT SRV PROV W/IN PREV 7 DAYS NOR LEAD ASSESS & MGT SRV/PX W/IN NXT 24 HR/SOON APT;5-10 MIN MED DIS DoD INCISION AND DRAINAGE OF ABSCESS (EG, CARBUNCLE, SUPPURATIVE HIDRADENITIS, CUTANEOUS OR SUBCUTANEOUS ABSCESS, CYST, FURUNCLE, OR PARONYCHIA); SIMPLE OR SINGLE 011 DoD INSERTION OF LEVONORGESTREL-RELEAS ING INTRAUTERINE SYSTEM 011 DoD REMOVAL, IMPLANTABLE CONTRACEPTIVE CAPSULES 011 DoD EXCISION, BENIGN LESION INCLUDING MARGINS, EXCEPT SKIN TAG (UNLESS LISTED ELSEWHERE), TRUNK, ARMS OR LEGS; EXCISED DIAMETER 0.6 TO 1.0 CM 011 DoD SCREENING [employer]OLA[employer] SMEAR; OBTAINING, PREPARING AND CONVEYANCE OF CERVICAL OR VAGINAL SMEAR TO LABORATORY 011 [facility] PSYC TSTNG(PSYCODIAG ASSESS,EMOTITY,INTELL ECTUAL ABILITIES,PERSONALITY &PSYCOPATHOLOGY,EG,MM PI&WAIS),W QUALIFIED HEALTH CARE PROFSIONAL INTERP&RPT,ADMINISTER ED ASSIGNMENT MANAGER,/HR,TECH TME,FCE-2-FCE 011 DoD SCREENING [place]AOU SMEAR; OBTAINING, PREPARING AND CONVEYANCE OF CERVICAL OR VAGINAL SMEAR TO LABORATORY 010 DoD INDIVIDUAL PSYCHOTHERAPY, INSIGHT ORIENTED, BEHAVIOR MODIFYING AND/OR SUPPORTIVE, IN AN OFFICE OR OUTPATIENT FACILITY, APPROXIMATELY 20 TO 30 MINUTES [id number] WITH THE PATIENT DoD SCREENING [place] SMEAR; OBTAINING, PREPARING AND CONVEYANCE OF CERVICAL OR VAGINAL SMEAR TO LABORATORY 010 DoD PREPARATION OF REPORT OF PATIENT'S PSYCHIATRIC STATUS, HISTORY, TREATMENT, OR PROGRESS (OTHER THAN FOR LEGAL OR CONSULTATIVE PURPOSES) FOR OTHER INDIVIDUALS, AGENCIES, OR INSURANCE CARRIERS 009 DoD INDIVIDUAL PSYCHOTHERAPY, INSIGHT ORIENTED, BEHAVIOR MODIFYING AND/OR SUPPORTIVE, IN AN OFFICE OR OUTPATIENT FACILITY, APPROXIMATELY 20 TO 30 MINUTES [id number] W THE PATIENT; W MED EVAL & MGT SER 009 DoD INDIVIDUAL PSYCHOTHERAPY, INSIGHT ORIENTED, BEHAVIOR MODIFYING AND/OR SUPPORTIVE, IN AN OFFICE OR OUTPATIENT FACILITY, APPROXIMATELY 20 TO 30 MINUTES [id number] W THE PATIENT; W MED EVAL & MGT SER 009 DoD PSYCHIATRIC DIAGNOSTIC INTERVIEW EXAMINATION 009 DoD INDIVIDUAL PSYCHOTHERAPY, INSIGHT ORIENTED, BEHAVIOR MODIFYING AND/OR SUPPORTIVE, IN AN OFFICE OR OUTPATIENT FACILITY, APPROXIMATELY 45 TO 50 MINUTES [id number]-AV-[id number] WITH THE PATIENT 009 DoD PSYC TSTNG(PSYCODIAG ASSESS,EMOTITY,INTELL ECTUAL ABILITIES,PERSONALITY &PSYCOPATHOLOGY,EG,MM PI&WAIS),W QUALIFIED HEALTH CARE PROFSIONAL INTERP&RPT,ADMINISTER ED ASSIGNMENT MANAGER,/HR,TECH TME,FCE-2-FCE 009 DoD PREPARATION OF REPORT OF PATIENT'S PSYCHIATRIC STATUS, HISTORY, TREATMENT, OR PROGRESS (OTHER THAN FOR LEGAL OR CONSULTATIVE PURPOSES) FOR OTHER INDIVIDUALS, AGENCIES, OR INSURANCE CARRIERS 008 DoD SCREENING PAPANICOLAOU SMEAR; OBTAINING, PREPARING AND CONVEYANCE OF CERVICAL OR VAGINAL SMEAR TO LABORATORY 007 DoD HEALTH AND BEHAVIOR INTERVENTION, EACH 15 MINUTES, [id number]; GROUP (2 OR MORE PATIENTS) 007 DoD COLPOSCOPY OF THE CERVIX INCLUDING UPPER/ADJACENT VAGINA; WITH BIOPSY(S) OF THE CERVIX AND ENDOCERVICAL CURETTAGE 006 DoD PSYCHIATRIC DIAGNOSTIC INTERVIEW EXAMINATION 006 DoD HEALTH AND BEHAVIOR INTERVENTION, EACH 15 MINUTES, [id number]; GROUP (2 OR MORE PATIENTS) 006 DoD HEALTH AND BEHAVIOR INTERVENTION, EACH 15 MINUTES, [id number]; GROUP (2 OR MORE PATIENTS) 006 DoD SCREENING PAPANICOLAOU SMEAR; OBTAINING, PREPARING AND CONVEYANCE OF CERVICAL OR VAGINAL SMEAR TO LABORATORY 006 DoD PSYCHIATRIC EVALUATION OF HOSPITAL RECORDS, OTHER PSYCHIATRIC REPORTS, PSYCHOMETRIC AND/OR PROJECTIVE TESTS, AND OTHER ACCUMULATED DATA FOR MEDICALDIAGNOSTIC PURPOSES 006 DoD INDIVIDUAL PSYCHOTHERAPY, INSIGHT ORIENTED, BEHAVIOR MODIFYING AND/OR SUPPORTIVE, IN AN OFFICE OR OUTPATIENT FACILITY, APPROXIMATELY 45 TO 50 MINUTES [id number] WITH THE PATIENT [facility] PSYCHIATRIC DIAGNOSTIC INTERVIEW EXAMINATION DoD INDIVIDUAL PSYCHOTHERAPY, INSIGHT ORIENTED, BEHAVIOR MODIFYING AND/OR SUPPORTIVE, IN AN OFFICE OR OUTPATIENT FACILITY, APPROXIMATELY 45 TO 50 MINUTES [id number] WITH THE PATIENT DoD INDIVIDUAL PSYCHOTHERAPY, INSIGHT ORIENTED, BEHAVIOR MODIFYING AND/OR SUPPORTIVE, IN AN OFFICE OR OUTPATIENT FACILITY, APPROXIMATELY 20 TO 30 MINUTES [id number] WITH THE PATIENT DoD PSYCHIATRIC DIAGNOSTIC INTERVIEW EXAMINATION DoD INDIVIDUAL PSYCHOTHERAPY, INSIGHT ORIENTED, BEHAVIOR MODIFYING AND/OR SUPPORTIVE, IN AN OFFICE OR OUTPATIENT FACILITY, APPROXIMATELY 45 TO 50 MINUTES [id number] WITH THE PATIENT [facility] Psychiatric Therapy Individual Approximately 20-30 Minutes Psychiatric Therapy Individual Approximately 20-30 Minutes [id number] SINTIA NAJERA [facility] Screening papanicolaou smear; obtaining, preparing and conveyance of cervical or vaginal smear to laboratory 010 RADHA AGUIRRE [facility] Psychiatric Therapy Preparation of Psychiatric Status Report Psychiatric Therapy Preparation of Psychiatric Status Report 11668 009 SINTIA NAJERA [facility] Psychiat Therapy Indiv Appr 20-30 Min W/ Med Eval Managemt Psychiat Therapy Indiv Appr 20-30 Min W/ Med Eval Managemt [id number] LAXMI, MARION [facility] Psychiat Therapy Indiv Appr 20-30 Min W/ Med Eval Managemt Psychiat Therapy Indiv Appr 20-30 Min W/ Med Eval Managemt [id number] LAXMI, MARION [facility] Psychiatric Evaluation Comprehensive Examination Psychiatric Evaluation Comprehensive Examination 07111 009 LAXMI, MARION DoD Psychiatric Therapy Individual Approximately 45-50 Minutes Psychiatric Therapy Individual Approximately 45-50 Minutes 24691 009 CAM GRESHAM [facility] Psychologic Testing And Report Administered By Clinical Appeals Specialist Psychologic Testing And Report Administered By Clinical Appeals Specialist [id number] 009 SAM COOPER [facility] Psychiatric Evaluation Comprehensive Examination Psychiatric Evaluation Comprehensive Examination 40627 009 SAM COOPER [facility] Psychiatric Therapy Preparation of Psychiatric Status Report Psychiatric Therapy Preparation of Psychiatric Status Report 05777 008 DANIEL VICTOR [facility] Screening papanicolaou smear; obtaining, preparing and conveyance of cervical or vaginal smear to laboratory 007 ANDREW WINCHESTER [facility] Health And Behav Intervention, Each 15 Min Grp (2 Or More) Health And Behav Intervention, Each 15 Min Grp (2 Or More) 47112 007 SINTIA NAJERA [facility] Colposcopy With Biopsy Colposcopy With Biopsy 05110 006 EVANGELINA WU [facility] Health And Behav Intervention, Each 15 Min Grp (2 Or More) Health And Behav Intervention, Each 15 Min Grp (2 Or More) 10780 006 ROSELYN MANZO [facility] Psychiatric Evaluation Comprehensive Examination Psychiatric Evaluation Comprehensive Examination 21109 006 EVA RANDLE [facility] Health And Behav Intervention, Each 15 Min Grp (2 Or More) Health And Behav Intervention, Each 15 Min Grp (2 Or More) 98453 006 ROSELYN MANZO [facility] Vaginal EUGENIO Prep Vaginal EUGENIO Prep 09198 006 DONNA JIMENEZ [facility] Screening papanicolaou smear; obtaining, preparing and conveyance of cervical or vaginal smear to laboratory 006 DONNA JIMENEZ [facility] Psychiatric Therapy Individual Approximately 45-50 Minutes Psychiatric Therapy Individual Approximately 45-50 Minutes 54101 006 ALYSON SUH [facility] Psychiatric Evaluation Review of Records and Reports Psychiatric Evaluation Review of Records and Reports 84628 006 ALYSON SUH Psychiatric Therapy Individual Approximately 45-50 Minutes Psychiatric Therapy Individual Approximately 45-50 Minutes 57097 006 JEANNIE LOVETT [facility] Psychiatric Evaluation Comprehensive Examination Psychiatric Evaluation Comprehensive Examination 05961 006 JEANNIE LOVETT [facility] Psychiatric Therapy Individual Approximately 45-50 Minutes Psychiatric Therapy Individual Approximately 45-50 Minutes 26898 006 JEANNIE LOVETT [facility] Psychiatric Therapy Individual Approximately 20-30 Minutes Psychiatric Therapy Individual Approximately 20-30 Minutes 47515 006 JEANNIE LOVETT [facility] Psychiatric Evaluation Comprehensive Examination Psychiatric Evaluation Comprehensive Examination 58895 006 JEANNIE LOVETT [facility] Psychiatric Therapy Individual Approximately 45-50 Minutes Psychiatric Therapy Individual Approximately 45-50 Minutes 68397 006 JEANNIE LOVETT [facility] Internet Med Svc Qual Nonphys Healthcare Prof Estab Patient Internet Med Svc Qual Nonphys Healthcare Prof Estab Patient [id number] [id number] PHIL BATEMAN [facility] Non-Physician Phone Call To Patient/Provider Brief (5-10min) Non-Physician Phone Call To Patient/Provider Brief (5-10min) [id number] [id number] NANCY FUENTES [facility] Screening papanicolaou smear; obtaining, preparing and conveyance of cervical or vaginal smear to laboratory 018 LAILA ABDUL [facility] Psychometric Neuropsych Testing Battery Admin By Computer Psychometric Neuropsych Testing Battery Admin By Computer 63914 018 KAYDEN MARTINEZ [facility] Psychiatric Evaluation Review of Records and Reports Psychiatric Evaluation Review of Records and Reports 79278 018 KAYDEN MARTINEZ [facility] Non-Physician Phone Call To Patient/Provider Brief (5-10min) Non-Physician Phone Call To Patient/Provider Brief (5-10min) 05262 018 PAWAN KELLEY [facility] Internet Med Svc Qual Nonphys Healthcare Prof Estab Patient Internet Med Svc Qual Nonphys Healthcare Prof Estab Patient [id number] 018 PRESTON GONZALEZ [facility] Psychiatric Evaluation Review of Records and Reports Psychiatric Evaluation Review of Records and Reports 80231 018 CLOVIS MELÉNDEZ [facility] Patient Counseling Medical Management Individual Patient Patient Counseling Medical Management Individual Patient [id number] [facility], DANO T [facility] Patient Counseling Medical Management Individual Patient Patient Counseling Medical Management Individual Patient [id number] BAPTIES, DANO T [facility] Patient Counseling Medical Management Individual Patient Patient Counseling Medical Management Individual Patient [id number] BAPTIES, DANO T [facility] Patient Counseling Medical Management Individual Patient Patient Counseling Medical Management Individual Patient [id number] BAPTIES, DANO T [facility] Physical Therapy Mobilization Joint Physical Therapy Mobilization Joint 67845 016 HEENA SAVAGE [facility] Physical Therapy: ___ Se ion Segments, 15 Minutes Each Physical Therapy: ___ Session Segments, 15 Minutes Each 71145 016 HEENA SAVAGE Physical Medicine Physical Therapy Evaluation Physical Medicine Physical Therapy Evaluation 22921 HEENA SAVAGE [facility] Psychiatric Evaluation Review of Records and Reports Psychiatric Evaluation Review of Records and Reports 24013 016 AUSTEN MCKAY [facility] Determination Of Refractive State Determination Of Refractive State 83108 016 LUX VENEGAS Scanning Computerized Ophthalmic Diagnostic Imaging Optic Nerve Scanning Computerized Ophthalmic Diagnostic Imaging Optic Nerve 14592 016 LUX VENEGAS Ophthalmological Prior Patient Start Comprehensive Care Ophthalmological Prior Patient Start Comprehensive Care [id number] 016 RUBILUX RODRIGUEZ Ophthalmological Prior Patient Start Comprehensive Care Ophthalmological Prior Patient Start Comprehensive Care 29971 016 LUX VENEGAS Determination Of Refractive State Determination Of Refractive State 32127 016 LUX VENEGAS [employer] Services Fitting Monofocals (Not For Aphakia) [facility] Fitting Monofocals (Not For Aphakia) 71431 016 LUX VENEGAS Psychiat Therapy Indiv Appr 20-30 Min W/ Med Eval Managemt 015 ANKUSH SOTO [facility] Psychiatric Evaluation Psychiatric Evaluation 03770 DIANE ANDERSON [facility] Screening papanicolaou smear; obtaining, preparing and conveyance of cervical or vaginal smear to laboratory 015 FLOWER ANG Intrauterine copper contraceptive 015 FLOWER ANG Gynecologic Services Intrauterine Device (IUD) Insertion [facility] Intrauterine Device (IUD) Insertion 53036 015 FLOWER ANG [facility] Patient education, not otherwise cla ified, non-physician provider, group, per se ion 015 MIESHA DANIELSON [facility] [employer] [facility] Fitting Monofocals (Not For Aphakia) [facility] Fitting Monofocals (Not For Aphakia) 63904 013 BLAIR HERNANDEZ Determination Of Refractive State Determination Of Refractive State 19431 013 BLAIR HERNANDEZ Ophthalmological New Patient Start Comprehensive Care Ophthalmological New Patient Start Comprehensive Care 23782 013 BLAIR HERNANDEZ [facility] Screening Test Of Visual Acuity, Quantitative, Bilateral Screening Test Of Visual Acuity, Quantitative, Bilateral 88620 013 DE LEÓNADRIANA [facility] Pulse Oximetry Pulse Oximetry 05787 013 HAIR MAYA [facility] Psychoactive Medication Management Psychoactive Medication Management 57292 013 ANKUSH SOTO [facility] Gynecologic Services Intrauterine Device (IUD) Removal Gynecologic Services Intrauterine Device (IUD) Removal 67306 013 FLOWER ANG [facility] Psychoactive Medication Management Psychoactive Medication Management 81645 012 ANKUSH SOTO [facility] Psychiatric Evaluation Comprehensive Examination Psychiatric Evaluation Comprehensive Examination 09792 012 ANKUSH SOTO [facility] Psychiatric Evaluation Review of Records and Reports Psychiatric Evaluation Review of Records and Reports 73024 012 CHELY GUERIN Psychiatric Therapy Environmental Intervention Psychiatric Therapy Environmental Intervention 43364 012 CHELY GUERIN Physical Therapy: ___ Se ion Segments, 15 Minutes Each Physical Therapy: ___ Session Segments, 15 Minutes Each 46492 012 GEETHA MURCIA [facility] Modalities Electrical Stimulation Unattended Modalities Electrical Stimulation Unattended 16148 012 SHAHRAM HAWLEY S [facility] Modalities Heat Hot Packs Modalities Heat Hot Packs 73165 012 FRAN HAWLEYE S [facility] Physical Therapy: ___ Se ion Segments, 15 Minutes Each Physical Therapy: ___ Session Segments, 15 Minutes Each 68811 012 SHAHRAM HAWLEY S [facility] Screening papanicolaou smear; obtaining, preparing and conveyance of cervical or vaginal smear to laboratory 012 RADHA AGUIRRE [facility] Modalities Heat Hot Packs Modalities Heat Hot Packs 74797 012 SHAHRAM HAWLEY S [facility] Modalities Electrical Stimulation Unattended Modalities Electrical Stimulation Unattended 14734 012 SHAHRAM HAWLEY S [facility] Physical Therapy: ___ Se ion Segments, 15 Minutes Each Physical Therapy: ___ Session Segments, 15 Minutes Each 35089 012 SHAHRAM HAWLEY S [facility] Physical Therapy: ___ Se ion Segments, 15 Minutes Each Physical Therapy: ___ Session Segments, 15 Minutes Each 28797 012 GEETHA MURCIA [facility] Physical Medicine Physical Therapy Evaluation Physical Medicine Physical Therapy Evaluation 58216 012 AUSTEN JARRELL [facility] Non-Physician Phone Call To Patient/Provider Brief (5-10min) Non-Physician Phone Call To Patient/Provider Brief (5-10min) 12505 012 ARISTIDES HUDSON Incision And Drainage Of Skin Absce Incision And Drainage Of Skin Abscess 19775 011 ARISTIDES ARNOLD [facility] Insertion of levonorgestrel-releas ing intrauterine system 011 RADHA AGUIRRE Implantable Contraceptive Capsules - Removal Implantable Contraceptive Capsules - Removal 07272 011 RADHA AGUIRRE Excision Of Lesion Trunk Benign .6 to 1cm Excision Of Lesion Trunk Benign .6 to 1cm 78911 011 ROBERTH KIMBALL Screening papanicolaou smear; obtaining, preparing and conveyance of cervical or vaginal smear to laboratory 011 RADHA AGUIRRE Psychiatric Evaluation Comprehensive Examination Psychiatric Evaluation Comprehensive Examination 29831 011 BOBBY ESTRADA Psychologic Testing And Report Administered By Clinical Appeals Specialist Psychologic Testing And Report Administered By Clinical Appeals Specialist 14980 011 BOBBY ESTRADA Screening papanicolaou smear; obtaining, preparing and conveyance of cervical or vaginal smear to laboratory 010 RADHA AGUIRRE Ophthalmological New Patient Start Comprehensive Care Ophthalmological New Patient Start Comprehensive Care 82319 NICHOLAS MANTILLA Determination Of Refractive State Determination Of Refractive State 63824 NICHOLAS MANTILLA [facility] Waiver services; not otherwise specified (NOS) NICHOLAS RICHARDSON Non-Physician Phone Call To Patient/Provider Brief (5-10min) Non-Physician Phone Call To Patient/Provider Brief (5-10min) 45698 ROBERTH BELTRÁN Excision Of Lesion Trunk Benign Over 4cm Excision Of Lesion Trunk Benign Over 4cm 10446 EDDIE WILCOX Layer Closure Of Wound Trunk 2.6 to 7.5 cm Layer Closure Of Wound Trunk 2.6 to 7.5 cm 39371 EDDIE WILCOX [facility] Patient Counseling Medical Management Individual Patient Patient Counseling Medical Management Individual Patient 29514 LUZMARIA HINSON [facility] Brief communication technology-based service, e.g. virtual check-in, by a physician or other qualified health care profe pedro who can report evaluation and management services, provided to an established patient, not originating from a related E/M service provided within the previous 7 days nor leading to an E/M service or procedure within the next 24 hours or soonest available appointment; 5-10 minutes of medical discu rigo NANCY FUENTES [facility] Breast augmentation Augmentation mammoplasty (procedure) [id number] [facility] Extraction of wisdom tooth Extraction of wisdom tooth (procedure) [id number] 010 [id number] 5th [facility] LEEP Loop electrosurgical excision procedure (procedure) [id number] 008 [id number]-[id number] [place] [address]-[facility] Intrauterine copper contraceptive 5C-[address] [place] [address]-[facility] Insertion of intrauterine device (IUD) Insertion of intrauterine device (IUD) 40380 5C-[address] [place] [address]-[facility] Social History Combined list of available smoking, tobacco, and other social history from [facility] of Defense and Veterans Affairs facilities. Social History Type Response Date Comment Formerly [facility] e Sex Representation Female (finding) 08/16/2021 Unknown Organization This section is an empty social history section. [facility] Tobacco Frequent/Daily exposure to secondhand smoke in indoor/confined spaces No. Cigarette use: Former-cigarette user. Other Tobacco use: Never-other tobacco user (not cigarettes). [facility] Sexual Orientation Ambula tory Pharmacy Gender identity Ambulator y [facility]acy Assessment and Plan Combined list of future care activities from Department of Defense and Veterans Affairs facilities (e.g., assessment and plan notes, appointments, orders, and referrals). Additional future care activities may be listed in the Plan of Care section. Result Assessment and Plan Date Source Assessment and Plan Extracted from:Title : FTR - low back pain Author: MANAV MCINTOSH DC Date: 01/26/25 D iagnosis: 1 . 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 D iagnosis: 2 . 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 D iagnosis: 3 . 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 D iagnosis: 4 . 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 D iagnosis: 5 . 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 D iagnosis: 6 . 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 End of Orders Chiropractic Treatment Chiropractic Diversified Adjustments S upine to C/S P yuniel T/S, S clarissa posture to Ilium, SI and L/S A T Performed attended, prone, Sinclair Flexion/Distraction (12min) to L/S, Protocol II, -59 Distinct separate procedure Therapeutic Modalities None Exercises Continue exercises as prescribed in treatment plan. Final Disposition Patient responded w ell to care m arked by d ecreased intensity of pain i ncreased ROM d ecreased muscular hypertonicity s /p chiropractic treatment. Physician Signature //SIGNED// Dr. Manav Micntosh DC, [facility]K Chiropractic Physician [address] [employer] Salena Enriquez [facility] Main Line DSN/Comm: [id number] / [phone] 01/26/25 08:17:24 Extracted from:Title: FTR - Neck and back pain Author: MANAV MCINTOSH DC Date: 01/08/25 D iagnosis: 1 . 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 D iagnosis: 2 . 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 D iagnosis: 3 . 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 D iagnosis: 4 . 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 D iagnosis: 5 . 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 End of Orders Chiropractic Treatment Chiropractic Diversified Adjustments S upine to C/S P yuniel T/S, S clarissa posture to Ilium, SI and L/S A T Performed attended, prone, Sinclair Flexion/Distraction (12min) to L/S, Protocol II, -59 Distinct separate procedure _ Therapeutic Modalities None Exercises Continue exercises as prescribed in treatment plan. Final Disposition Patient responded w ell to care m arked by d ecreased intensity of pain i ncreased ROM d ecreased muscular hypertonicity s /p chiropractic treatment. Physician Signature //SIGNED// Dr. Manav Mcintosh DC, RMSK Chiropractic Physician [facility] [employer] [facility] Main Line DSN/Comm: [id number] / [phone] 01/08/25 09:53:31 Extracted from:Title: SPEC - low back and neck pain Author: MANAV MCINTOSH DC Date: 12/09/24 D iagnosis: 1 . 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 ? 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 D iagnosis: 2 . 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 ? 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 D iagnosis: 3 . 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 ? 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 D iagnosis: 4 . 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 ? 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 D iagnosis: 5 . 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 ? 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 D iagnosis: 6 . 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 ? 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 End of Orders Chiropractic Treatment Chiropractic Diversified Adjustments S upine to C/S P yuniel T/S, S clarissa posture to Ilium, SI and L/S A T Performed attended, prone, Sinclair Flexion/Distraction (12min) to L/S, Protocol II, -59 Distinct separate procedure Therapeutic Modalities None FINAL DISPOSITION Patient Consent f or Examination and Treatment: Jessica Aguayo Patient advised of the nature of chiropractic examination and treatment, the risks and benefits of chiropractic versus other procedures for t his condition, relative chance of each occurrence, exacerbation of current clinical s/sx, and alternative options including no treatment. Verbal informed consent was given by the patient to proceed with evaluation and treatment which may include but not limited to i nspection, palpation, percussion, compression, cross friction massage, trigger point therapy, electrical stimulation, d ry needling, heat, cold, s tretching, d iagnostic and therapeutic ultrasound, to regions of the t highs, hips and buttocks, back, neck, upper chest, and abdomen. Patient may expect total relief from pain, temporary relief from pain, increased pain, residual muscle soreness after the initial treatment which should resolve within a few days. If pain becomes intolerable patient to contact this clinic directly for acute care appointment and/or referral instruction. Advised patient consent may be revoked by them at any time. The patient verbalized and understanding of informed consent and verbalized consent to examination and treatment. Patient directs consent to be valid for all treatments rendered in this clinic. T abi for patient questions was allotted and all questions were answered. 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 Patient prognosis is f air b ased on patient's i nitial positive response to treatment. Her chronic right scapular winging is complicated by fixation of the right first rib. She has accommodated well and regained most function of the right shoulder, however, I would like to see more movement in the hypomobile lower cervical spine and first rib in this patient who self manipulates the middle to upper cervical spine which his hypermobile. Discussed LSTV and in my experience her pain is not from her left IIa Castellvi transverse process but rather from fixation of the contralateral SI joint. Physician Signature //SIGNED// Dr. Manav Mcintosh DC, [facility]K Chiropractic Physician [address] [employer] Salena Enriquez [place] [place] [facility] Main Line DSN/Comm: [id number] / [phone] 12/09/24 14:20:02 Extracted from:Title: Office Clinic Note Author: SUE BERNARD MD Date: 11/18/24 1. S terilization requested The patient was counseled regarding s terilization. D iscussed that this was a permanent decision a nd t hat a s long as it was safe to do so, the goal would be to remove the entire length of the fallopian tube. T his would p revent any potential for reversal surgery. ?Discussed that the only way to c onceive f ollowing this procedure would be to undergo in vitro fertilization. S urgical risks d iscussed i ncluding bleeding, infection and damage to surrounding structures including injury to the u terus, o varies, b ladder, bowel a nd surrounding neuro vasculature. D iscussed that surgical complications c ould lead to the need for additional procedures and increased length of hospital stay. T he patient was also consented for a blood transfusion in the event that a surgical complication resulted in catastrophic bleeding. R isk of blood transfusion including t ransmission of infection as well as transfusion related reactions was discussed. Alternatives t o p ermanent f emale sterilization was discussed i ncluding l alexander-acting reversible contraceptives such as IUDs and the Nexplanon implant. D iscussed that these forms of contraception were e quivalent in efficacy to tubal ligation, however they were not?permanent. Also discussed alternatives including D epo-Provera, pills, patches, vaginal ring a nd barrier methods of contraception. Discussed that m danielle vasectomy was a permanent form of contraception for a monogamous couple t hat was f av and s afer while being just as effective as a tubal ligation. The patient desires to proceed with the l aparoscopic bilateral salpingectomy sometime this fall. I recommended she contact our clinic when she is close to a time frame that will be good for her and her family and we can schedule her for her preoperative appointment within 30 days of her procedure. The sterilization consent was reviewed with the patient today and signed. The patient understands that this is a permanent decision but she can change her mind at any point. Active Duty Dispo: WWQ: Y Duty Restriction: N Mobility Restriction: N Fitness Restriction: N Meets Retention Standards: Y DAWG/RILO: N Member cleared to Arm: Marek Echeverria MD [employer] Staff Physician [facility] , HCOS/SGOG Mina ALCANTARA, CHERRIE Extracted from:Title: Curriculum Development Coordinator Virtual Office Clinic Note Author: KAT MUELLER NP, Women's Health Date: 11/04/24 1. E ncounter for other general counseling and advice on contraception Comprehensive Contraceptive C ounseling: Provided c omprehensive c ontraceptive counseling on the full range of FDA approved methods using the tiered approach and in c onsideration of MEC and client p references. R eviewed reversible options and mechanism of action, benefits, cons, risks, and use. Options include: condoms or other barriers that protect against STIs, pills, ring, patch, Depo Provera Shot, Nexplanon i mplant, IUD), and male/female sterilization. Client requests: Female sterilization Message sent to office support to contact patient and schedule her a consult with [employer] physician for permanent sterilization. Kat Mueller, [facility], [facility] Women s Health Nurse Practitioner, Board Certified [address] [place] [address] [employer] [address] [place] [address] comm: Extracted from:Title: [facility] X-ray results Author: KATARZYNA GOMEZ PA Date: 09/07/24 1. B ack stiffness *Virtual Appt: C onfirmed full name and before discussion* 39 Years o ld F h ere for XR results from Aug 2024. 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 Mild multilevel discogenic vertebral endplate change. XR R shoulder significant for minimal subchondral cystlike change of the distal clavicular articular surface. XR C-spine unremarkable. - Discussed results w/ pt - Pt has PT scheduled for 09/11 - F/u once c onsult c ompleted or sooner if needed. Will consider additional imaging if no improvement 2. S tiffness of right shoulder see above. The patient (is not) World Wide Qualified. 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 Pt verbalized understanding and agreement. KATARZYNA GOMEZ E, 1st Lt, [place] [address] Extracted from:Title: [facility] Multiple concerns Author: KATARZYNA GOMEZ PA Date: 08/21/24 1. A DHD - Attention deficit disorder with hyperactivity 38 Years o ld F c urrently on A dderall 20mg XR f or ADHD. D enies palpitations, sleep disturbances, decreased appetite. Desires to c ontinue current dose. ? HR of 76. B P 145/89. Repeat 1 . Stable weight. - Adderall 20mg XR ordered - R ecommended weekend holidays to prevent tolerance - Advised pt to avoid alcohol and caffeine - F/u in 3 mo f or reassessment 2. B ack stiffness 38 Years o ld F c /o low back stiffness, R sided u pper back stiffness and R shoulder stiffness for a couple of months. Atraumatic onset. D enies r adiation. PE u nremarkable. - Advised to avoid aggravating activities - Recommended gentle exercise/stretching and heat t herapy - XR L-spine, C-spine, and R shoulder ordered - P T referral placed - F/u once i maging, consult c ompleted Ordered: Referral Request 2.0 - DoD 3. S tiffness of right shoulder see above. Ordered: Referral Request 2.0 - DoD 4. W inged right scapula Winged R scapula on exam. Pt notes scapular prominence since 2014. She denies pain. Reports some ROM limitation. - XR and PT referral a s above - F/u once i maging, consult c ompleted Ordered: Referral Request 2.0 - DoD The patient (is not) World Wide Qualified. AM Dispo: Non-Fly Cleared for AFSC/MOS Duties: Yes Cleared for continued service: Y es Cleared for mobility duties: N o Cleared for participation in physical fitness program: Y es PHA/MHA/DRHA: U TD Visit deployment related: N o Profile: Reviewed MEB in progress: N o IMR/ASIMS Status: G reen Medications reconciled. Pt verbalized understanding and agreement. KATARZYNA GOMEZ, 1st Lt, PA-C [facility] [place] [address] Extracted from:Title: Dermatitis, Nevi Author: SHIN URENA MD Date: 06/02/24 1. S olar lentigo 2. M elanocytic nevus of trunk 3. H emangioma of skin 4. U nspecified contact dermatitis, unspecified cause [employer] [facility] OUTPATIENT ENCOUNTER CC: S kin check HPI: 38 Years o ld F cristino 2 Female w ith hx of BCC on back s/p Mohs in October 2023 presents reporting rash on L postauricular neck, last for weeks, was concerned for possible new skin cancer, but rash resolved and is no longer present today. Pt does request focused skin exam today but declines FBSE. Family Hx: N oncontributory Personal Hx: Prior hx of keratinocytic skin cancer Other: N/A ROS: DVPRS Pain scale (related to skin): 0/10 Changing moles? (unless o/w noted in HPI): N o Rash? (unless o/w noted in HPI): No Other: N/A EXAM: Senior Controller: D eclined General: Well-developed, Mood/Affect normal, Alert/Oriented Conjunctivae/Eyelids: Normal Eccrine/Apocrine glands: Normal _ A skin exam of the s calp, hair, face, eyes, ears, neck, decolletage, upper and lower e xtremities (including digits/nails), R flank w as unremarkable except for the following: - Faint erythema L postauricular neck, no scale or neoplasm seen today - multiple (10-20) similar small, round to oval, symmetric, well-circumscribed, homogenously pigmented macules or papules with smooth/regular borders on trunk/extremities - multiple scattered [id number] brown well-defined similar and uniformly pigmented macules on cheeks, d orsal hands - multiple similar b right red small well-circumscribed round to oval macules and thin papules on R flank Examination of g enitals/perineum: O ffered, patient declined ASSESSMENT/PLAN 1. D ermatitis unsp L postauricular cheek - F avor ACD/ICD vs peter derm but m ostly resolved - f/u if rash recurs 2. B enign appearing melanocytic nevi on trunk/extremities - P t w/ benign-appearing and asymptomatic nevi with no red flags of dramatic or rapid change in size/shape/color, pt reassured, no treatment indicated, f/u if notice rapid change/concerns. 3. S olar lentigos on chronically sun-exposed areas - B enign, reassured, but recommend regular sun protection and annual FBSE 4. C ximena angiomas on trunk - B enign, reassured. 5. S kin screening exam - No skin lesions suspicious for malignancy or requiring biopsy/further evaluation at this time in focused skin exam - Recommend full body skin exam every 6 1 2 months (due in September 2023) - Pt advised to repeat self-skin exam monthly; RTC if any new or changing lesions found on self-skin exam - Counseled pt on importance of sun protection, proper sunscreen use, physical blockers, reapplication after sweating, etc - Recommend avoid midday sun, wear daily sunscreen, and use SPF protection clothing with any sun exposure - Use broad-spectrum sunscreen w/ SPF 30+ for daily exposure, o/w SPF 50+ for prolonged sun exposure. Apply 30min before exposure, then every 2 hours thereafter - Discussed ABCDE s of melanoma and the signs of NMSC Active Duty: No indication that this ADSM should have any new fitness/duty/mobility restrictions for their dermatological issue(s), but defer to PCM. Visit is not deployment related. Patient e ducated on dermatological diagnoses/recommendations a s above. All questions answered. I spent 15+ cumulative minutes providing care to the patient (e.g. chart review, obtaining history, performing a skin exam, counseling/educating the patient, and documentation). Any medication change(s) were reviewed during the visit, and patient verbalized understanding. An updated med list was offered/provided to patient at the end of the encounter. Patient has been educated about the importance of medication adherence and maintaining accurate list of medications. Extracted from:Title: [facility] ADHD Author: JEWEL GAGE PA Date: 06/01/24 1. A DHD - Attention deficit disorder with hyperactivity V IRTUAL APPT Est dx. No contraindications to continued stimulant use. R eassuring vital signs. C ontinue use of Adderall XR 20 mg once daily dosing. - Discussed drug holidays - Reviewed that stimulants can cause but not limited to: psychosis, anorexia, CVD, behavioral changes - F/u in 3 m onths Ordered: dextroamphetamine-amphetamine(Add erall XR 20 mg oral capsule, extended release), 1 cap(s), Oral, every morning, # 90 cap(s), 0 total refill(s), Maintenance, 1 cap(s) Oral every morning,x90 days, Pharmacy: [facility] [Not filled] The patient (is) World Wide Qualified. AM Dispo: Non-Fly Cleared for AFSC/MOS Duties: Y es Cleared for continued service: Yes Cleared for mobility duties: Would require waiver Cleared for participation in physical fitness program: Yes PHA/MHA/DRHA: UTD Visit deployment related: No Profile Reviewed Yes MEB in progress: No IMR/ASIMS Status: R eun Gage BSC, PA-C [facility] ([facility]) Mina ALC[place] Please note that this dictation was completed with computer voice recognition software, Total Eclipse. Quite often unanticipated grammatical, syntax, homophones, and other interpretive errors are inadvertently transcribed by the computer software. Please disregard these errors and excuse any errors that have escaped final proofreading. If are any questions regarding documentation, please contact this provider directly. Extracted from:Title: Curriculum Development Coordinator Office Clinic Note Author: KTA MUELLER NP Date: 04/20/24 1. E ncounter for gynecological examination (general) (routine) with abnormal findings Cervical Cancer Screening: Pap Smear and HPV testing _ Breast Cancer Screening: Recommend starting mammograms at age 40 for average risk patients, per ACOG. CBE n ormal today.. Discussed breast self-awareness. Colon Cancer Screening: Initiate at age 45 for average risk patients. _ Bone Health: Recommend Bone Mineral Density testing at age 65 for average risk women. Encouraged weight bearing exercises, adequate Calcium and Vitamin D Immunizations: s tatus reviewed. Reproductive Life Planning: Using contraception. Mental Health: P atient declined any MH needs today Age-appropriate Prevention Education: Discussed tobacco and alcohol use; healthy eating and exercise; preventive screening for chronic diseases. 2. E ncounter for screening for malignant neoplasm of cervix Ordered: AP Cytology AUTOMATIC PACKER OPERATOR HPV High Risk (16/18/Other) 3. A bnormal cervical Papanicolaou smear 4. P ostcoital and contact bleeding Intermittent postcoital spotting likely r/t strings rubbing along columnar cells of endocervix. Silver Nitrate applied today to area. F/u if bleeding persists or prn new symptoms 5. E ncounter for routine checking of intrauterine contraceptive device Rvwd r/b/s.e of pargard IUD, FDA approved x 10 yrs. Placed 03/2015. Pt states shew will likely remove and replace with another Paragard when due Reviewed with patient discharge instructions. Written discharge instructions were provided to the patient. Recommended patient to follow up regularly for WWEs, s ooner as discussed above, or as needed for WH concerns, symptoms, or questions. Kat Mueller, [facility], [facility] Women s Health Nurse Practitioner, Board Certified [address] [place] [address] [employer] [address] [place] [address] comm: Extracted from:Title: [facility] ADHD Author: JEWEL GAGE PA Date: 04/14/24 1. A DHD - Attention deficit disorder with hyperactivity VIRTUAL APPT Est dx. No contraindications to continued Adderall use. R eassuring vital signs. Decrease to Adderall XR 20 mg once daily dosing beginning on 01 May 2024 - Discussed drug holidays - Reviewed that Adderall can cause but not limited to: psychosis, anorexia, CVD, behavioral changes - F/u in 6 weeks via virtual appt for Adderall re-evaluation Ordered: dextroamphetamine-amphetamine(Add erall XR 20 mg oral capsule, extended release), 1 cap(s), Oral, every morning, # 30 cap(s), 0 total refill(s), Maintenance, 1 cap(s) Oral every morning,x30 days, Pharmacy: [facility] [Not filled] Capt Jewel Gage BSC, PAJuan Pablo [facility] ([facility]) Mina [place] Please note that this dictation was completed with computer voice recognition software, Total Eclipse. Quite often unanticipated grammatical, syntax, homophones, and other interpretive errors are inadvertently transcribed by the computer software. Please disregard these errors and excuse any errors that have escaped final proofreading. If are any questions regarding documentation, please contact this provider directly. Extracted from:Title: [facility] Virtual MHA/PHA Author: SHERRIE MANDEL PA-C Date: 02/24/24 1. 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 Completed screenings and provided patient education as appropriate. MHA completed in [facility] and copied to this record. Malthouse Laborer is aware of services available ([phone], One source, MF, , B H, , [facility] resources, e mergency room, first shirt or others in c alfred of command, etc) and how to contact them if needed. Malthouse Laborer denies suicidal and homicidal ideation. Preventative services reviewed and discussed per age, race, and gender. Reviewed immunization history and assessed immunization status. Reviewed physical activity, s exual risk factors and previous STD testing date, including HIV. Reviewed readiness labs and occupational health examinations required. Compared medications reported by Malthouse Laborer to active medication list in MH/JLV and any variances were reconciled. Time spent in pt care, counseling and reviewing chart was approximately 2 0min. Patient informed PHA complete and ASIMS updated. Any complaints or issues identified while conducting the PHA have been addressed and/or the vp cardiovascular service line was instructed to return to their PCM for care. 2. A DHD - Attention deficit disorder with hyperactivity 38 y/o F w/ hx of ADHD Requires Adderall DW added 3. S creening due Patient is due for screening labs. Patient understands labs are fasting. Labs ordered. 4. 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 RECOMMENDED E[place]LLING IN [place]URN [place] REGISTRY. Also, OSD/DHA requires that the member's electronic health record be coded with the appropriate codes. Recommended to member that he/she registers in [place] by visiting the [place] website or by calling [phone]. Member voiced understanding and agreed to plan. 5. E xposure to polluted air, occupational Member responded affirmatively to burn pit and toxic airborne contaminant exposure screening. RECOMMENDED E[place]LLING IN [place]. Also, OSD/DHA requires that the member's electronic health record be coded with the appropriate codes. Recommended to member that he/she registers in [place] by visiting the [place] website or by calling [phone]. Member voiced understanding and agreed to plan. 6. B suraj cell carcinoma of back Patient had BCC removed from back during Mohs procedure Requires yearly follow up 7. A bnormal cervical Papanicolaou smear 2005 A SCUS, HPV pos 2007 L OSIRIS 2009 N ILM ( HPV ordered, not sufficient sample to test) 2010 ASCUS, HPV neg 2011 NILM 2017 Unsat, HPV neg 2019 (no result, just record of pap collected civilian) 2022: current ASCUS HPV neg Due for pap smear. Patient instructed to make an appointment. 8. A neurysm of splenic artery Patient requires annual follow up due in Aug 2024. SHERRIE MANDEL, Capt, [employer], BSC Physician Molder Hand, JOSUE, STEFFEN Phase 2 Medical Readiness Cell Extracted from:Title: [facility] possible lung nodule Author: HARPREET VEE DO Date: 12/25/23 1. N odule of lung incidental finding from outside facility, - discussed that we need her to bring copy of results/ report - will go ahead and repeat CT chest - no red flag symptoms at this time The patient (is ) World Wide Qualified. AM Dispo: Non-Fly Cleared for AFSC/MOS Duties: Yes Cleared for continued service: Yes Cleared for mobility duties: Yes Cleared for participation in physical fitness program: Yes PHA/MHA/DRHA: UTD. Visit deployment related: N o Profile Reviewed MEB in progress: No IMR/ASIMS Status: [X] Yellow Ordered: CT Chest w/ Contrast 2. C ough 2 weeks cough likely post viral URI - discussed with her that cough can last weeks - discussed that inhalers are not warranted at this time and in absence of wheezing would not be of benefit. - she does have evidence of post nasal drainage which is likely causing her symptoms - will trial Flonase, afrin, and Mucinex - return precautions discussed 3. A DHD - Attention deficit disorder with hyperactivity chronic controlled will refill Adderall XR 25mg QD for 90 days Orders: dextroamphetamine-amphetamine(Add erall XR 25 mg oral capsule, extended release), 1 cap(s), Oral, every morning, # 30 cap(s), 0 total refill(s), Maintenance, 1 cap(s) Oral every morning, Pharmacy: [facility] [Not filled] oxymetazoline nasal(Afrin 0.05% nasal spray), 2 spray(s), Nostril-Both, BID, Do not use for more than 3 days., # 15 mL, 0 total refill(s), Maintenance, 2 spray(s) Nostril-Both BID,Instr:Do not use for more than 3 days., Pharmacy: [facility] [Not filled] fluticasone nasal(Flonase Allergy Relief 50 mcg/inh nasal spray), 1 spray(s), Nostril-Both, Daily, # 16 g, 1 total refill(s), Maintenance, 1 spray(s) Nostril-Both Daily, Pharmacy: [facility] [Not filled] guaiFENesin(Mucinex 600 mg oral tablet, extended release), 1 tab(s), Oral, every 12 hr, # 20 tab(s), 0 total refill(s), Maintenance, 1 tab(s) Oral every 12 hr, Pharmacy: [facility] [Not filled] Harpreet Vee DO. Family Medicine Physician JASTing Extracted from:Title: [facility] skin leison/ADHD/MDD. Author: ARCHIE NORMAN DO Date: 10/14/23 ADHD - Attention deficit disorder with hyperactivity Chronic, c ontrolled. N o c/o medication s/e or non-adherence. PDMP aware reviewed and appropriate. No concern for medication abuse. Recommendations: - Cardiovascular exam WNL - BP a t goalof <140/90 per JNC-8 guidelines - HR <100 - Discussed drug holidays on weekends and holidays - To monitor for misuse or diversion of stimulants, will have pt sign controlled substance agreement and require urine drug screening at f/u visit - F/u in 3 months for prescription renewal and ongoing management The patient (is ) World Wide Qualified. AM Dispo: Non-Fly Cleared for AFSC/MOS Duties: Yes Cleared for continued service: Yes Cleared for mobility duties: Yes Cleared for participation in physical fitness program: Yes PHA/MHA/DRHA: Due. Visit deployment related: N o Profile Reviewed MEB in progress: No IMR/ASIMS Status: [X] Green (no action), Member aware. Depression Chronic, c ontrolled. HPI and PE c/w MDD. No SI/HI. Good social support. Recommendations: - continue with CBT. - Pharmacologic management: - Continue with wellbutrin 150mg XR daily. - ER for SI/SA/HI - Follow up: 4 weeks Skin lesion Unknown chronicity. (at least 2 months.) Concern for BCC vs squamous vs amelanotic melanoma. -given h igh concern, reached out to Dermatology and was scheduled for same day at 1350. - f/u with DERM. Ordered: Referral Request 2.0 - [facility] Orders: dextroamphetamine-amphetamine(Add erall XR 25 mg oral capsule, extended release), 1 cap(s), Oral, every morning, # 90 cap(s), 0 total refill(s), Maintenance, 1 cap(s) Oral every morning, Pharmacy: [facility] [Last filled 10/14/23] buPROPion(Wellbutrin XL 150 mg/24 hours oral tablet, extended release), 1 tab(s), Oral, every 24 hr, # 90 tab(s), 0 total refill(s), Maintenance, 1 tab(s) Oral every 24 hr, Pharmacy: [facility] [Last filled 10/14/23] Capt Mensah DO, [employer], Family Physician [facility] Medicine Residency Program in [place], [place] [address] [place] [address] Extracted from:Title: ADHD f/u, Depression Author: NOHELIA NICOLE Date: 06/12/23 1. A ttention deficit hyperactivity disorder, predominantly inattentive type chronic, stable. Pt has been taking Adderall XR 30mg daily since 2006. She is interested in decreasing her dose and would like to d/c the medication eventually. Recommend decreasing to XR 25mg prn. Contact clinic in one month to re-evaluate. Pt voiced understanding and agreement with plan. Ordered: dextroamphetamine-amphetamine(Add erall XR 25 mg oral capsule, extended release), 1 cap(s), Oral, every morning, # 30 cap(s), 0 total refill(s), Maintenance, 1 cap(s) Oral every morning, Pharmacy: [facility] [Not filled] 2. D epression chronic, stable. Reviewed, PHQ-9/ALIE-7. No SI/HI. Pt was previously taking Wellbutrin a nd is interested in restarting. Tolerated medication well with good control of symptoms. MR x90 days. F/u in clinic in one month te re-evaluate. Pt voiced understanding and agreement with plan. ? 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 I ntermenstrual bleeding Pap repeated today. With the 2019 result not available, reasonable to repeat anyway with hx of unsat and current symptoms. Discussed paraguard possibly causing some inflammation which is aggravated with more intense pelvic activity. Also discussed potential for endometrial polyp. There is not a visible cervical polyp and the IUD was not visible displaced. Recommended US to evaluate for abnormality. Medications for abnormal bleeding are typically for heavy menstrual bleeding with paraguard or unscheduled bleeding with the LNG IUD. Could still consider TXA or motrin for these occasions, but they are irregular/unscheduled. All questions asked/answered. Rachael Rivero DO, [facility] Curriculum Development Coordinator Surgeon and Embalmer Assistant [place], [place] [phone] [facility] ad hoc forms reviewed, Active Duty member Future Appointments Appointment Date: 02/12/2025 01:20:00 PM Scheduled Provider: LOU GUIDRY PA, Family Medicine Location: [id number] Appointment Type: REDNS FTR Appointment Date: 02/25/2025 08:10:00 AM Scheduled Provider: MANAV MCINTOSH DC [facility]: [facility] FTR 01/28/2025 [facility] ELHAMMina Assessment and Plan Extracted from:Title : FTR - low back pain Author: MANAV MCINTOSH DC Date: 01/26/25 D iagnosis: 1 . 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 D iagnosis: 2 . 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 D iagnosis: 3 . 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 D iagnosis: 4 . 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 D iagnosis: 5 . 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 D iagnosis: 6 . 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 End of Orders Chiropractic Treatment Chiropractic Diversified Adjustments S upine to C/S P yuniel T/S, S clarissa posture to Ilium, SI and L/S A T Performed attended, prone, Sinclair Flexion/Distraction (12min) to L/S, Protocol II, -59 Distinct separate procedure Therapeutic Modalities None Exercises Continue exercises as prescribed in treatment plan. Final Disposition Patient responded w ell to care m arked by d ecreased intensity of pain i ncreased ROM d ecreased muscular hypertonicity s /p chiropractic treatment. Physician Signature //SIGNED// Dr. Manav Mcintosh DC, RMSK Chiropractic Physician [address] [employer] [facility] Read[facility] Main Line DSN/Comm: [phone] / [phone] 01/26/25 08:17:24 Extracted from:Title: FTR - Neck and back pain Author: MANAV MCINTOSH DC Date: 01/08/25 D iagnosis: 1 . 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 D iagnosis: 2 . 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 D iagnosis: 3 . 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 D iagnosis: 4 . 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 D iagnosis: 5 . 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 End of Orders Chiropractic Treatment Chiropractic Diversified Adjustments S upine to C/S P yuniel T/S, S clarissa posture to Ilium, SI and L/S A T Performed attended, prone, Sinclair Flexion/Distraction (12min) to L/S, Protocol II, -59 Distinct separate procedure _ Therapeutic Modalities None Exercises Continue exercises as prescribed in treatment plan. Final Disposition Patient responded w ell to care m arked by d ecreased intensity of pain i ncreased ROM d ecreased muscular hypertonicity s /p chiropractic treatment. Physician Signature //SIGNED// Dr. Manav Mcintosh DC, RMSK Chiropractic Physician 375 Operational Medical Readiness Salena Enriquez [facility] Main Line DSN/Comm: [id number] / [phone] 01/08/25 09:53:31 Extracted from:Title: SPEC - low back and neck pain Author: MANAV MCINTOSH DC Date: 12/09/24 D iagnosis: 1 . 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 ? 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 D iagnosis: 2 . 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 ? 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 D iagnosis: 3 . 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 ? 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 D iagnosis: 4 . 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 ? 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 D iagnosis: 5 . 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 ? 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 D iagnosis: 6 . 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 ? 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 End of Orders Chiropractic Treatment Chiropractic Diversified Adjustments S upine to C/S P yuniel T/S, S clarissa posture to Ilium, SI and L/S A T Performed attended, prone, Sinclair Flexion/Distraction (12min) to L/S, Protocol II, -59 Distinct separate procedure Therapeutic Modalities None FINAL DISPOSITION Patient Consent f or Examination and Treatment: Jessica Aguayo Patient advised of the nature of chiropractic examination and treatment, the risks and benefits of chiropractic versus other procedures for t his condition, relative chance of each occurrence, exacerbation of current clinical s/sx, and alternative options including no treatment. Verbal informed consent was given by the patient to proceed with evaluation and treatment which may include but not limited to i nspection, palpation, percussion, compression, cross friction massage, trigger point therapy, electrical stimulation, d ry needling, heat, cold, s tretching, d iagnostic and therapeutic ultrasound, to regions of the t highs, hips and buttocks, back, neck, upper chest, and abdomen. Patient may expect total relief from pain, temporary relief from pain, increased pain, residual muscle soreness after the initial treatment which should resolve within a few days. If pain becomes intolerable patient to contact this clinic directly for acute care appointment and/or referral instruction. Advised patient consent may be revoked by them at any time. The patient verbalized and understanding of informed consent and verbalized consent to examination and treatment. Patient directs consent to be valid for all treatments rendered in this clinic. T abi for patient questions was allotted and all questions were answered. 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 Patient prognosis is f air b ased on patient's i nitial positive response to treatment. Her chronic right scapular winging is complicated by fixation of the right first rib. She has accommodated well and regained most function of the right shoulder, however, I would like to see more movement in the hypomobile lower cervical spine and first rib in this patient who self manipulates the middle to upper cervical spine which his hypermobile. Discussed LSTV and in my experience her pain is not from her left IIa Castellvi transverse process but rather from fixation of the contralateral SI joint. Physician Signature //SIGNED// Dr. Manav Mcintosh DC, RMSK Chiropractic Physician [facility]ational Medical Readiness [facility] Main Line DSN/Comm: [id number] / [phone] 12/09/24 14:20:02 Extracted from:Title: Office Clinic Note Author: SUE BERNARD MD Date: 11/18/24 1. S terilization requested The patient was counseled regarding s terilization. D iscussed that this was a permanent decision a nd t hat a s long as it was safe to do so, the goal would be to remove the entire length of the fallopian tube. T his would p revent any potential for reversal surgery. ?Discussed that the only way to c onceive f ollowing this procedure would be to undergo in vitro fertilization. S urgical risks d iscussed i ncluding bleeding, infection and damage to surrounding structures including injury to the u terus, o varies, b ladder, bowel a nd surrounding neuro vasculature. D iscussed that surgical complications c ould lead to the need for additional procedures and increased length of hospital stay. T he patient was also consented for a blood transfusion in the event that a surgical complication resulted in catastrophic bleeding. R isk of blood transfusion including t ransmission of infection as well as transfusion related reactions was discussed. Alternatives t o p ermanent f emale sterilization was discussed i ncluding l alexander-acting reversible contraceptives such as IUDs and the Nexplanon implant. D iscussed that these forms of contraception were e quivalent in efficacy to tubal ligation, however they were not?permanent. Also discussed alternatives including D epo-Provera, pills, patches, vaginal ring a nd barrier methods of contraception. Discussed that m danielle vasectomy was a permanent form of contraception for a monogamous couple t hat was f av and s afer while being just as effective as a tubal ligation. The patient desires to proceed with the l aparoscopic bilateral salpingectomy sometime this fall. I recommended she contact our clinic when she is close to a time frame that will be good for her and her family and we can schedule her for her preoperative appointment within 30 days of her procedure. The sterilization consent was reviewed with the patient today and signed. The patient understands that this is a permanent decision but she can change her mind at any point. Active Duty Dispo: WWQ: Y Duty Restriction: N Mobility Restriction: N Fitness Restriction: N Meets Retention Standards: Y DAWG/RILO: N Member cleared to Arm: Marek Echeverria MD [employer] Staff Physician [facility] KEY, HCOS/SGOG Mina [place], [place] Extracted from:Title: Curriculum Development Coordinator Virtual Office Clinic Note Author: KAT MUELLER NP, Women's Health Date: 11/04/24 1. E biancaunter for other general counseling and advice on contraception Comprehensive Contraceptive C ounseling: Provided c omprehensive c ontraceptive counseling on the full range of FDA approved methods using the tiered approach and in c onsideration of MEC and client p references. R eviewed reversible options and mechanism of action, benefits, cons, risks, and use. Options include: condoms or other barriers that protect against STIs, pills, ring, patch, Depo Provera Shot, Nexplanon i mplant, IUD), and male/female sterilization. Client requests: Female sterilization Message sent to office support to contact patient and schedule her a consult with FISH [employer] PROCESSOR physician for permanent sterilization. Kat Mueller, [facility] Women s Health Nurse Practitioner, Board Certified [address] [place] [address] [employer] [address] [place] [address] comm: Extracted from:Title: [facility] X-ray results Author: KATARZYNA GOMEZ PA Date: 09/07/24 1. B ack stiffness *Virtual Appt: C onfirmed full name and before discussion* 39 Years o ld F h ere for XR results from Aug 2024. 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 Mild multilevel discogenic vertebral endplate change. XR R shoulder significant for minimal subchondral cystlike change of the distal clavicular articular surface. XR C-spine unremarkable. - Discussed results w/ pt - Pt has PT scheduled for 09/11 - F/u once c onsult c ompleted or sooner if needed. Will consider additional imaging if no improvement 2. S tiffness of right shoulder see above. The patient (is not) World Wide Qualified. AM Dispo: Non-Fly Cleared for AFSC/MOS Duties: Yes Cleared for continued service: Y es Cleared for mobility duties: N o Cleared for participation in physical fitness program: Y es PHA/MHA/DRHA: U TD Visit deployment related: N o Profile: Reviewed MEB in progress: N o IMR/ASIMS Status: G reen Medications reconciled. Pt verbalized understanding and agreement. KATARZYNA GOMEZ E, 1st Lt, PA-C [facility] [facility] [place] [address] Extracted from:Title: [facility] Multiple concerns Author: KATARZYNA GOMEZ PA Date: 08/21/24 1. A DHD - Attention deficit disorder with hyperactivity 38 Years o ld F c urrently on A dderall 20mg XR f or ADHD. D enies palpitations, sleep disturbances, decreased appetite. Desires to c ontinue current dose. ? HR of 76. B P 145/89. Repeat 1 . Stable weight. - Adderall 20mg XR ordered - R ecommended weekend holidays to prevent tolerance - Advised pt to avoid alcohol and caffeine - F/u in 3 mo f or reassessment 2. B ack stiffness 38 Years o ld F c /o low back stiffness, R sided u pper back stiffness and R shoulder stiffness for a couple of months. Atraumatic onset. D enies r adiation. PE u nremarkable. - Advised to avoid aggravating activities - Recommended gentle exercise/stretching and heat t herapy - XR L-spine, C-spine, and R shoulder ordered - P T referral placed - F/u once i maging, consult c ompleted Ordered: Referral Request 2.0 - DoD 3. S tiffness of right shoulder see above. Ordered: Referral Request 2.0 - DoD 4. W inged right scapula Winged R scapula on exam. Pt notes scapular prominence since 2014. She denies pain. Reports some ROM limitation. - XR and PT referral a s above - F/u once i maging, consult c ompleted Ordered: Referral Request 2.0 - DoD The patient (is not) World Wide Qualified. 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 Pt verbalized understanding and agreement. KATARZYNA GOMEZ, 1st Lt, PA-C [facility] [place] [address] Extracted from:Title: Dermatitis, Nevi Author: SHIN URENA MD Date: 06/02/24 1. S olar lentigo 2. M elanocytic nevus of trunk 3. H emangioma of skin 4. U nspecified contact dermatitis, unspecified cause [employer] D[facility]MATOLOG[facility] OUTPATIENT ENCOUNTER CC: S kin check HPI: 38 Years o ld F cristino 2 Female w ith hx of BCC on back s/p Mohs in October 2023 presents reporting rash on L postauricular neck, last for weeks, was concerned for possible new skin cancer, but rash resolved and is no longer present today. Pt does request focused skin exam today but declines FBSE. Family Hx: N oncontributory Personal Hx: Prior hx of keratinocytic skin cancer Other: N/A ROS: DVPRS Pain scale (related to skin): 0/10 Changing moles? (unless o/w noted in HPI): N o Rash? (unless o/w noted in HPI): No Other: N/A EXAM: Senior Controller: D eclined General: Well-developed, Mood/Affect normal, Alert/Oriented Conjunctivae/Eyelids: Normal Eccrine/Apocrine glands: Normal _ A skin exam of the s calp, hair, face, eyes, ears, neck, decolletage, upper and lower e xtremities (including digits/nails), R flank w as unremarkable except for the following: - Faint erythema L postauricular neck, no scale or neoplasm seen today - multiple (10-20) similar small, round to oval, symmetric, well-circumscribed, homogenously pigmented macules or papules with smooth/regular borders on trunk/extremities - multiple scattered nnxkm-wz-[id number] brown well-defined similar and uniformly pigmented macules on cheeks, d orsal hands - multiple similar b right red small well-circumscribed round to oval macules and thin papules on R flank Examination of g enitals/perineum: O ffered, patient declined ASSESSMENT/PLAN 1. D ermatitis unsp L postauricular cheek - F avor ACD/ICD vs peter derm but m ostly resolved - f/u if rash recurs 2. B enign appearing melanocytic nevi on trunk/extremities - P t w/ benign-appearing and asymptomatic nevi with no red flags of dramatic or rapid change in size/shape/color, pt reassured, no treatment indicated, f/u if notice rapid change/concerns. 3. S olar lentigos on chronically sun-exposed areas - B enign, reassured, but recommend regular sun protection and annual FBSE 4. C ximena angiomas on trunk - B enign, reassured. 5. S kin screening exam - No skin lesions suspicious for malignancy or requiring biopsy/further evaluation at this time in focused skin exam - Recommend full body skin exam every 6 1 2 months (due in September 2023) - Pt advised to repeat self-skin exam monthly; RTC if any new or changing lesions found on self-skin exam - Counseled pt on importance of sun protection, proper sunscreen use, physical blockers, reapplication after sweating, etc - Recommend avoid midday sun, wear daily sunscreen, and use SPF protection clothing with any sun exposure - Use broad-spectrum sunscreen w/ SPF 30+ for daily exposure, o/w SPF 50+ for prolonged sun exposure. Apply 30min before exposure, then every 2 hours thereafter - Discussed ABCDE s of melanoma and the signs of NMSC Active Duty: No indication that this ADSM should have any new fitness/duty/mobility restrictions for their dermatological issue(s), but defer to PCM. Visit is not deployment related. Patient e ducated on dermatological diagnoses/recommendations a s above. All questions answered. I spent 15+ cumulative minutes providing care to the patient (e.g. chart review, obtaining history, performing a skin exam, counseling/educating the patient, and documentation). Any medication change(s) were reviewed during the visit, and patient verbalized understanding. An updated med list was offered/provided to patient at the end of the encounter. Patient has been educated about the importance of medication adherence and maintaining accurate list of medications. Extracted from:Title: [facility] ADHD Author: JEWEL GAGE PA Date: 06/01/24 1. A DHD - Attention deficit disorder with hyperactivity V IRTUAL APPT Est dx. No contraindications to continued stimulant use. R eassuring vital signs. C ontinue use of Adderall XR 20 mg once daily dosing. - Discussed drug holidays - Reviewed that stimulants can cause but not limited to: psychosis, anorexia, CVD, behavioral changes - F/u in 3 m onths Ordered: dextroamphetamine-amphetamine(Add erall XR 20 mg oral capsule, extended release), 1 cap(s), Oral, every morning, # 90 cap(s), 0 total refill(s), Maintenance, 1 cap(s) Oral every morning,x90 days, Pharmacy: [facility] [Not filled] The patient (is) World Wide Qualified. AM Dispo: Non-Fly Cleared for AFSC/MOS Duties: Y es Cleared for continued service: Yes Cleared for mobility duties: Would require waiver Cleared for participation in physical fitness program: Yes PHA/MHA/DRHA: UTD Visit deployment related: No Profile Reviewed Yes MEB in progress: No IMR/ASIMS Status: R eun Gage BSC, PA-C [facility] ([facility]) Mina [place] Please note that this dictation was completed with computer voice recognition software, Total Eclipse. Quite often unanticipated grammatical, syntax, homophones, and other interpretive errors are inadvertently transcribed by the computer software. Please disregard these errors and excuse any errors that have escaped final proofreading. If are any questions regarding documentation, please contact this provider directly. Extracted from:Title: Curriculum Development Coordinator Office Clinic Note Author: KAT MUELLER NP Date: 04/20/24 1. E ncounter for gynecological examination (general) (routine) with abnormal findings Cervical Cancer Screening: Pap Smear and HPV testing _ Breast Cancer Screening: Recommend starting mammograms at age 40 for average risk patients, per ACOG. CBE n ormal today.. Discussed breast self-awareness. Colon Cancer Screening: Initiate at age 45 for average risk patients. _ Bone Health: Recommend Bone Mineral Density testing at age 65 for average risk women. Encouraged weight bearing exercises, adequate Calcium and Vitamin D Immunizations: s tatus reviewed. Reproductive Life Planning: Using contraception. Mental Health: P atient declined any MH needs today Age-appropriate Prevention Education: Discussed tobacco and alcohol use; healthy eating and exercise; preventive screening for chronic diseases. 2. E ncounter for screening for malignant neoplasm of cervix Ordered: AP Cytology [employer] P[employer]ER O[employer]ATOR HPV High Risk (16/18/Other) 3. A bnormal cervical Papanicolaou smear 4. P ostcoital and contact bleeding Intermittent postcoital spotting likely r/t strings rubbing along columnar cells of endocervix. Silver Nitrate applied today to area. F/u if bleeding persists or prn new symptoms 5. E ncounter for routine checking of intrauterine contraceptive device Rvwd r/b/s.e of pargard IUD, FDA approved x 10 yrs. Placed 03/2015. Pt states shew will likely remove and replace with another Paragard when due Reviewed with patient discharge instructions. Written discharge instructions were provided to the patient. Recommended patient to follow up regularly for WWEs, s ooner as discussed above, or as needed for WH concerns, symptoms, or questions. Kat Mueller, [facility] Women s Health Nurse Practitioner, Board Certified [address] [place] [address] [employer] [address] [place] [address] comm: Extracted from:Title: [facility] ADHD Author: JEWEL GAGE PA Date: 04/14/24 1. A DHD - Attention deficit disorder with hyperactivity VIRTUAL APPT Est dx. No contraindications to continued Adderall use. R eassuring vital signs. Decrease to Adderall XR 20 mg once daily dosing beginning on 01 May 2024 - Discussed drug holidays - Reviewed that Adderall can cause but not limited to: psychosis, anorexia, CVD, behavioral changes - F/u in 6 weeks via virtual appt for Adderall re-evaluation Ordered: dextroamphetamine-amphetamine(Add erall XR 20 mg oral capsule, extended release), 1 cap(s), Oral, every morning, # 30 cap(s), 0 total refill(s), Maintenance, 1 cap(s) Oral every morning,x30 days, Pharmacy: [facility] [Not filled] Capt Jewel Gage BSC, PAJuan Pablo [facility] ([facility]) [place] Please note that this dictation was completed with computer voice recognition software, Total Eclipse. Quite often unanticipated grammatical, syntax, homophones, and other interpretive errors are inadvertently transcribed by the computer software. Please disregard these errors and excuse any errors that have escaped final proofreading. If are any questions regarding documentation, please contact this provider directly. Extracted from:Title: [facility] Virtual MHA/PHA Author: SHERRIE MANDEL PA-C Date: 02/24/24 1. 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 Completed screenings and provided patient education as appropriate. MHA completed in ASIMS and copied to this record. [place] [employer] is aware of services available ([phone], One source, [facility], [employer] Centerer, B , , embedded squadron resources, e mergency room, first shirt or others in access hospital daytonn of command, etc) and how to contact them if needed. Malthouse Laborer denies suicidal and homicidal ideation. Preventative services reviewed and discussed per age, race, and gender. Reviewed immunization history and assessed immunization status. Reviewed physical activity, s exual risk factors and previous STD testing date, including HIV. Reviewed readiness labs and occupational health examinations required. Compared medications reported by Malthouse Laborer to active medication list in [facility] and any variances were reconciled. Time spent in pt care, counseling and reviewing chart was approximately 2 0min. Patient informed PHA complete and ASIMS updated. Any complaints or issues identified while conducting the PHA have been addressed and/or the vp cardiovascular service line was instructed to return to their PCM for care. 2. A DHD - Attention deficit disorder with hyperactivity 38 y/o F w/ hx of ADHD Requires Adderall DW added 3. S creening due Patient is due for screening labs. Patient understands labs are fasting. Labs ordered. 4. 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 RECOMMENDED ENROLLING IN [place] BURN P[place] REGISTRY. Also, OSD/DHA requires that the member's electronic health record be coded with the appropriate codes. Recommended to member that he/she registers in [place] by visiting the [place] website or by calling [phone]. Member voiced understanding and agreed to plan. 5. E xposure to polluted air, occupational Member responded affirmatively to burn pit and toxic airborne contaminant exposure screening. RECOMMENDED ENROLLING IN [place] BURN P[place] REGIST[place]. Also, OSD/DHA requires that the member's electronic health record be coded with the appropriate codes. Recommended to member that he/she registers in [place] by visiting [place] website or by calling [phone]. Member voiced understanding and agreed to plan. 6. B suraj cell carcinoma of back Patient had BCC removed from back during Mohs procedure Requires yearly follow up 7. A bnormal cervical Papanicolaou smear 2005 A SCUS, HPV pos 2007 L OSIRIS 2009 N ILM ( HPV ordered, not sufficient sample to test) 2010 ASCUS, HPV neg 2011 NILM 2017 Unsat, HPV neg 2019 (no result, just record of pap collected civilian) 2022: current ASCUS HPV neg Due for pap smear. Patient instructed to make an appointment. 8. A neurysm of splenic artery Patient requires annual follow up due in Aug 2024. SHERRIE MANDEL, , [employer], BSC Physician Molder Hand, MPAS, PAAntoinetteC Phase 2 Medical Readiness Cell Extracted from:Title: [facility] possible lung nodule Author: HARPREET VEE DO Date: 12/25/23 1. N odule of lung incidental finding from outside facility, - discussed that we need her to bring copy of results/ report - will go ahead and repeat CT chest - no red flag symptoms at this time The patient (is ) World Wide Qualified. AM Dispo: Non-Fly Cleared for AFSC/MOS Duties: Yes Cleared for continued service: Yes Cleared for mobility duties: Yes Cleared for participation in physical fitness program: Yes PHA/MHA/DRHA: UTD. Visit deployment related: N o Profile Reviewed MEB in progress: No IMR/ASIMS Status: [X] Yellow Ordered: CT Chest w/ Contrast 2. C ough 2 weeks cough likely post viral URI - discussed with her that cough can last weeks - discussed that inhalers are not warranted at this time and in absence of wheezing would not be of benefit. - she does have evidence of post nasal drainage which is likely causing her symptoms - will trial Flonase, afrin, and Mucinex - return precautions discussed 3. A DHD - Attention deficit disorder with hyperactivity chronic controlled will refill Adderall XR 25mg QD for 90 days Orders: dextroamphetamine-amphetamine(Add erall XR 25 mg oral capsule, extended release), 1 cap(s), Oral, every morning, # 30 cap(s), 0 total refill(s), Maintenance, 1 cap(s) Oral every morning, Pharmacy: [facility] [Not filled] oxymetazoline nasal(Afrin 0.05% nasal spray), 2 spray(s), Nostril-Both, BID, Do not use for more than 3 days., # 15 mL, 0 total refill(s), Maintenance, 2 spray(s) Nostril-Both BID,Instr:Do not use for more than 3 days., Pharmacy: [facility] [Not filled] fluticasone nasal(Flonase Allergy Relief 50 mcg/inh nasal spray), 1 spray(s), Nostril-Both, Daily, # 16 g, 1 total refill(s), Maintenance, 1 spray(s) Nostril-Both Daily, Pharmacy: [facility] [Not filled] guaiFENesin(Mucinex 600 mg oral tablet, extended release), 1 tab(s), Oral, every 12 hr, # 20 tab(s), 0 total refill(s), Maintenance, 1 tab(s) Oral every 12 hr, Pharmacy: [facility] [Not filled] Harpreet Vee DO. Family Medicine Physician . ABEBE Extracted from:Title: [facility] skin leison/ADHD/MDD. Author: ARCHIE NORMAN DO Date: 10/14/23 ADHD - Attention deficit disorder with hyperactivity Chronic, c ontrolled. N o c/o medication s/e or non-adherence. PDMP aware reviewed and appropriate. No concern for medication abuse. Recommendations: - Cardiovascular exam WNL - BP a t goalof <140/90 per JNC-8 guidelines - HR <100 - Discussed drug holidays on weekends and holidays - To monitor for misuse or diversion of stimulants, will have pt sign controlled substance agreement and require urine drug screening at f/u visit - F/u in 3 months for prescription renewal and ongoing management The patient (is ) World Wide Qualified. AM Dispo: Non-Fly Cleared for AFSC/MOS Duties: Yes Cleared for continued service: Yes Cleared for mobility duties: Yes Cleared for participation in physical fitness program: Yes PHA/MHA/DRHA: Due. Visit deployment related: N o Profile Reviewed MEB in progress: No IMR/ASIMS Status: [X] Green (no action), Member aware. Depression Chronic, c ontrolled. HPI and PE c/w MDD. No SI/HI. Good social support. Recommendations: - continue with CBT. - Pharmacologic management: - Continue with wellbutrin 150mg XR daily. - ER for SI/SA/HI - Follow up: 4 weeks Skin lesion Unknown chronicity. (at least 2 months.) Concern for BCC vs squamous vs amelanotic melanoma. -given h igh concern, reached out to Dermatology and was scheduled for same day at 1350. - f/u with DERM. Ordered: Referral Request 2.0 - [facility] Orders: dextroamphetamine-amphetamine(Add erall XR 25 mg oral capsule, extended release), 1 cap(s), Oral, every morning, # 90 cap(s), 0 total refill(s), Maintenance, 1 cap(s) Oral every morning, Pharmacy: [facility] [Last filled 10/14/23] buPROPion(Wellbutrin XL 150 mg/24 hours oral tablet, extended release), 1 tab(s), Oral, every 24 hr, # 90 tab(s), 0 total refill(s), Maintenance, 1 tab(s) Oral every 24 hr, Pharmacy: [facility] [Last filled 10/14/23] Archie Norman DO, , [employer], Family Physician [facility] Clinic/Equity Structurer [facility] Residency Program in [place], [place] [address] [address] Extracted from:Title: ADHD f/u, Depression Author: NOHELIA NICOLE Date: 06/12/23 1. A ttention deficit hyperactivity disorder, predominantly inattentive type chronic, stable. Pt has been taking Adderall XR 30mg daily since 2006. She is interested in decreasing her dose and would like to d/c the medication eventually. Recommend decreasing to XR 25mg prn. Contact clinic in one month to re-evaluate. Pt voiced understanding and agreement with plan. Ordered: dextroamphetamine-amphetamine(Add erall XR 25 mg oral capsule, extended release), 1 cap(s), Oral, every morning, # 30 cap(s), 0 total refill(s), Maintenance, 1 cap(s) Oral every morning, Pharmacy: [facility] [Not filled] 2. D epression chronic, stable. Reviewed, PHQ-9/ALIE-7. No SI/HI. Pt was previously taking Wellbutrin a nd is interested in restarting. Tolerated medication well with good control of symptoms. MR x90 days. F/u in clinic in one month te re-evaluate. Pt voiced understanding and agreement with plan. ? 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 I ntermenstrual bleeding Pap repeated today. With the 2019 result not available, reasonable to repeat anyway with hx of unsat and current symptoms. Discussed paraguard possibly causing some inflammation which is aggravated with more intense pelvic activity. Also discussed potential for endometrial polyp. There is not a visible cervical polyp and the IUD was not visible displaced. Recommended US to evaluate for abnormality. Medications for abnormal bleeding are typically for heavy menstrual bleeding with paraguard or unscheduled bleeding with the LNG IUD. Could still consider TXA or motrin for these occasions, but they are irregular/unscheduled. All questions asked/answered. Rachael Rivero DO, [facility] Curriculum Development Coordinator Surgeon and Embalmer Assistant [place] [facility], [place] [phone] [facility] ad hoc forms reviewed, Active Duty member Future Appointments Appointment Date: 02/12/2025 01:20:00 PM Scheduled Provider: LOU GUIDRY PA, Family Medicine Location: [id number] Appointment Type: REDNS FTR Appointment Date: 02/25/2025 08:10:00 AM Scheduled Provider: MANAV MCINTOSH DC Location: [address] [place] [address] Appointment Type: CHIRO FTR 01/28/2025 [id number] [place] Assessment and Plan Extracted from:Title : FTR - low back pain Author: MANAV MCINTOSH DC Date: 01/26/25 D iagnosis: 1 . 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 D iagnosis: 2 . 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 D iagnosis: 3 . 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 D iagnosis: 4 . 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 D iagnosis: 5 . 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 D iagnosis: 6 . 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 End of Orders Chiropractic Treatment Chiropractic Diversified Adjustments S upine to C/S P yuniel T/S, S clarissa posture to Ilium, SI and L/S A T Performed attended, prone, Sinclair Flexion/Distraction (12min) to L/S, Protocol II, -59 Distinct separate procedure Therapeutic Modalities None Exercises Continue exercises as prescribed in treatment plan. Final Disposition Patient responded w ell to care m arked by d ecreased intensity of pain i ncreased ROM d ecreased muscular hypertonicity s /p chiropractic treatment. Physician Signature //SIGNED// Dr. Manav Mcintosh DC, RMSK Chiropractic Physician [facility] Read[facility] Main Line DSN/Comm: [phone] / [phone] 01/26/25 08:17:24 Extracted from:Title: FTR - Neck and back pain Author: MANAV MCINTOSH DC Date: 01/08/25 D iagnosis: 1 . 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 D iagnosis: 2 . 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 D iagnosis: 3 . 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 D iagnosis: 4 . 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 D iagnosis: 5 . 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 End of Orders Chiropractic Treatment Chiropractic Diversified Adjustments S upine to C/S P yuniel T/S, S clarissa posture to Ilium, SI and L/S A T Performed attended, prone, Sinclair Flexion/Distraction (12min) to L/S, Protocol II, -59 Distinct separate procedure _ Therapeutic Modalities None Exercises Continue exercises as prescribed in treatment plan. Final Disposition Patient responded w ell to care m arked by d ecreased intensity of pain i ncreased ROM d ecreased muscular hypertonicity s /p chiropractic treatment. Physician Signature //SIGNED// Dr. Manav Mcintosh DC, RMSK Chiropractic Physician 375 Operational Medical Readiness [place] Enriquez [facility] Main Line DSN/Comm: [phone] / [phone] 01/08/25 09:53:31 Extracted from:Title: SPEC - low back and neck pain Author: MANAV MCINTOSH DC Date: 12/09/24 D iagnosis: 1 . 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 ? 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 D iagnosis: 2 . 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 ? 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 D iagnosis: 3 . 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 ? 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 D iagnosis: 4 . 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 ? 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 D iagnosis: 5 . 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 ? 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 D iagnosis: 6 . 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 ? 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 End of Orders Chiropractic Treatment Chiropractic Diversified Adjustments S upine to C/S P yuniel T/S, S clarissa posture to Ilium, SI and L/S A T Performed attended, prone, Sinclair Flexion/Distraction (12min) to L/S, Protocol II, -59 Distinct separate procedure Therapeutic Modalities None FINAL DISPOSITION Patient Consent f or Examination and Treatment: Jessica Aguayo Patient advised of the nature of chiropractic examination and treatment, the risks and benefits of chiropractic versus other procedures for t his condition, relative chance of each occurrence, exacerbation of current clinical s/sx, and alternative options including no treatment. Verbal informed consent was given by the patient to proceed with evaluation and treatment which may include but not limited to i nspection, palpation, percussion, compression, cross friction massage, trigger point therapy, electrical stimulation, d ry needling, heat, cold, s tretching, d iagnostic and therapeutic ultrasound, to regions of the t highs, hips and buttocks, back, neck, upper chest, and abdomen. Patient may expect total relief from pain, temporary relief from pain, increased pain, residual muscle soreness after the initial treatment which should resolve within a few days. If pain becomes intolerable patient to contact this clinic directly for acute care appointment and/or referral instruction. Advised patient consent may be revoked by them at any time. The patient verbalized and understanding of informed consent and verbalized consent to examination and treatment. Patient directs consent to be valid for all treatments rendered in this clinic. T abi for patient questions was allotted and all questions were answered. 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 Patient prognosis is f air b ased on patient's i nitial positive response to treatment. Her chronic right scapular winging is complicated by fixation of the right first rib. She has accommodated well and regained most function of the right shoulder, however, I would like to see more movement in the hypomobile lower cervical spine and first rib in this patient who self manipulates the middle to upper cervical spine which his hypermobile. Discussed LSTV and in my experience her pain is not from her left IIa Castellvi transverse process but rather from fixation of the contralateral SI joint. Physician Signature //SIGNED// Dr. Manav Mcintosh, JULEE, RMSK Chiropractic Physician [address] [employer] [place] PEDERSON, [facility] Main Line DSN/Comm: [phone] / [phone] 12/09/24 14:20:02 Extracted from:Title: Office Clinic Note Author: SUE BERNARD MD Date: 11/18/24 1. S terilization requested The patient was counseled regarding s terilization. D iscussed that this was a permanent decision a nd t hat a s long as it was safe to do so, the goal would be to remove the entire length of the fallopian tube. T his would p revent any potential for reversal surgery. ?Discussed that the only way to c onceive f ollowing this procedure would be to undergo in vitro fertilization. S urgical risks d iscussed i ncluding bleeding, infection and damage to surrounding structures including injury to the u terus, o varies, b ladder, bowel a nd surrounding neuro vasculature. D iscussed that surgical complications c ould lead to the need for additional procedures and increased length of hospital stay. T he patient was also consented for a blood transfusion in the event that a surgical complication resulted in catastrophic bleeding. R isk of blood transfusion including t ransmission of infection as well as transfusion related reactions was discussed. Alternatives t o p ermanent f emale sterilization was discussed i ncluding l alexander-acting reversible contraceptives such as IUDs and the Nexplanon implant. D iscussed that these forms of contraception were e quivalent in efficacy to tubal ligation, however they were not?permanent. Also discussed alternatives including D epo-Provera, pills, patches, vaginal ring a nd barrier methods of contraception. Discussed that beryl santos vasectomy was a permanent form of contraception for a monogamous couple t hat was f av and s afer while being just as effective as a tubal ligation. The patient desires to proceed with the l aparoscopic bilateral salpingectomy sometime this fall. I recommended she contact our clinic when she is close to a time frame that will be good for her and her family and we can schedule her for her preoperative appointment within 30 days of her procedure. The sterilization consent was reviewed with the patient today and signed. The patient understands that this is a permanent decision but she can change her mind at any point. Active Duty Dispo: WWQ: Y Duty Restriction: N Mobility Restriction: N Fitness Restriction: N Meets Retention Standards: Y DAWG/RILO: N Member cleared to Arm: Marek Echeverria MD [employer] PROCESSOR Staff Physician [address] [place] [address], HCOS/SGOG [place] Extracted from:Title: Curriculum Development Coordinator Virtual Office Clinic Note Author: KAT MUELLER EDUCATION INSTRUCTOR, Women's Health Date: 11/04/24 1. E ottoniel for other general counseling and advice on contraception Comprehensive Contraceptive C ounseling: Provided c omprehensive c ontraceptive counseling on the full range of FDA approved methods using the tiered approach and in c onsideration of MEC and client p references. R eviewed reversible options and mechanism of action, benefits, cons, risks, and use. Options include: condoms or other barriers that protect against STIs, pills, ring, patch, Depo Provera Shot, Nexplanon i mplant, IUD), and male/female sterilization. Client requests: Female sterilization Message sent to office support to contact patient and schedule her a consult with FISH [employer]E PROCESSOR physician for permanent sterilization. Kat Mueller, [facility] Women s Health Nurse Practitioner, Board Certified [address] [place] [address] [employer] [address] [place] [address] comm: Extracted from:Title: [facility] X-ray results Author: KATARZYNA GOMEZ PA Date: 09/07/24 1. B ack stiffness *Virtual Appt: C onfirmed full name and before discussion* 39 Years o ld F h ere for XR results from Aug 2024. 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 Mild multilevel discogenic vertebral endplate change. XR R shoulder significant for minimal subchondral cystlike change of the distal clavicular articular surface. XR C-spine unremarkable. - Discussed results w/ pt - Pt has PT scheduled for 09/11 - F/u once c onsult c ompleted or sooner if needed. Will consider additional imaging if no improvement 2. S tiffness of right shoulder see above. The patient (is not) World Wide Qualified. AM Dispo: Non-Fly Cleared for AFSC/MOS Duties: Yes Cleared for continued service: Y es Cleared for mobility duties: N o Cleared for participation in physical fitness program: Y es PHA/MHA/DRHA: U TD Visit deployment related: N o Profile: Reviewed MEB in progress: N o IMR/ASIMS Status: G merline Medications reconciled. Pt verbalized understanding and agreement. KATARZYNA GOMEZ, 1st Lt, PA-C [facility] [place] [address] Extracted from:Title: [facility] Multiple concerns Author: KATARZYNA GOMEZ PA Date: 08/21/24 1. A DHD - Attention deficit disorder with hyperactivity 38 Years o ld F c urrently on A dderall 20mg XR f or ADHD. D enies palpitations, sleep disturbances, decreased appetite. Desires to c ontinue current dose. ? HR of 76. B P 145/89. Repeat 1 . Stable weight. - Adderall 20mg XR ordered - R ecommended weekend holidays to prevent tolerance - Advised pt to avoid alcohol and caffeine - F/u in 3 mo f or reassessment 2. B ack stiffness 38 Years o ld F c /o low back stiffness, R sided u pper back stiffness and R shoulder stiffness for a couple of months. Atraumatic onset. D enies r adiation. PE u nremarkable. - Advised to avoid aggravating activities - Recommended gentle exercise/stretching and heat t herapy - XR L-spine, C-spine, and R shoulder ordered - P T referral placed - F/u once i maging, consult c ompleted Ordered: Referral Request 2.0 - DoD 3. S tiffness of right shoulder see above. Ordered: Referral Request 2.0 - DoD 4. W inged right scapula Winged R scapula on exam. Pt notes scapular prominence since 2014. She denies pain. Reports some ROM limitation. - XR and PT referral a s above - F/u once i maging, consult c ompleted Ordered: Referral Request 2.0 - [facility]D The patient (is not) World Wide Qualified. 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 Pt verbalized understanding and agreement. KATARZYNA GOMEZ, 1st Lt, PAAntoinetteC [facility] [place] [address] Extracted from:Title: Dermatitis, Nevi Author: SHIN URENA MD Date: 06/02/24 1. S olar lentigo 2. M elanocytic nevus of trunk 3. H emangioma of skin 4. U nspecified contact dermatitis, unspecified cause [facility] DERMATOLOGY OUTPATIENT ENCOUNTER CC: S kin check HPI: 38 Years o ld F cristino 2 Female w ith hx of BCC on back s/p Mohs in October 2023 presents reporting rash on L postauricular neck, last for weeks, was concerned for possible new skin cancer, but rash resolved and is no longer present today. Pt does request focused skin exam today but declines FBSE. Family Hx: N oncontributory Personal Hx: Prior hx of keratinocytic skin cancer Other: N/A ROS: DVPRS Pain scale (related to skin): 0/10 Changing moles? (unless o/w noted in HPI): N o Rash? (unless o/w noted in HPI): No Other: N/A EXAM: Senior Controller: D eclined General: Well-developed, Mood/Affect normal, Alert/Oriented Conjunctivae/Eyelids: Normal Eccrine/Apocrine glands: Normal _ A skin exam of the s calp, hair, face, eyes, ears, neck, decolletage, upper and lower e xtremities (including digits/nails), R flank w as unremarkable except for the following: - Faint erythema L postauricular neck, no scale or neoplasm seen today - multiple (10-20) similar small, round to oval, symmetric, well-circumscribed, homogenously pigmented macules or papules with smooth/regular borders on trunk/extremities - multiple scattered [id number] brown well-defined similar and uniformly pigmented macules on cheeks, d orsal hands - multiple similar b right red small well-circumscribed round to oval macules and thin papules on R flank Examination of g enitals/perineum: O ffered, patient declined ASSESSMENT/PLAN 1. D ermatitis unsp L postauricular cheek - F avor ACD/ICD vs peter derm but m ostly resolved - f/u if rash recurs 2. B enign appearing melanocytic nevi on trunk/extremities - P t w/ benign-appearing and asymptomatic nevi with no red flags of dramatic or rapid change in size/shape/color, pt reassured, no treatment indicated, f/u if notice rapid change/concerns. 3. S olar lentigos on chronically sun-exposed areas - B enign, reassured, but recommend regular sun protection and annual FBSE 4. C ximena angiomas on trunk - B enign, reassured. 5. S kin screening exam - No skin lesions suspicious for malignancy or requiring biopsy/further evaluation at this time in focused skin exam - Recommend full body skin exam every 6 1 2 months (due in September 2023) - Pt advised to repeat self-skin exam monthly; RTC if any new or changing lesions found on self-skin exam - Counseled pt on importance of sun protection, proper sunscreen use, physical blockers, reapplication after sweating, etc - Recommend avoid midday sun, wear daily sunscreen, and use SPF protection clothing with any sun exposure - Use broad-spectrum sunscreen w/ SPF 30+ for daily exposure, o/w SPF 50+ for prolonged sun exposure. Apply 30min before exposure, then every 2 hours thereafter - Discussed ABCDE s of melanoma and the signs of NMSC Active Duty: No indication that this ADSM should have any new fitness/duty/mobility restrictions for their dermatological issue(s), but defer to PCM. Visit is not deployment related. Patient e ducated on dermatological diagnoses/recommendations a s above. All questions answered. I spent 15+ cumulative minutes providing care to the patient (e.g. chart review, obtaining history, performing a skin exam, counseling/educating the patient, and documentation). Any medication change(s) were reviewed during the visit, and patient verbalized understanding. An updated med list was offered/provided to patient at the end of the encounter. Patient has been educated about the importance of medication adherence and maintaining accurate list of medications. Extracted from:Title: [facility] ADHD Author: JEWEL GAGE PA Date: 06/01/24 1. A DHD - Attention deficit disorder with hyperactivity V IRTUAL APPT Est dx. No contraindications to continued stimulant use. R eassuring vital signs. C ontinue use of Adderall XR 20 mg once daily dosing. - Discussed drug holidays - Reviewed that stimulants can cause but not limited to: psychosis, anorexia, CVD, behavioral changes - F/u in 3 m ont Ordered: dextroamphetamine-amphetamine(Add erall XR 20 mg oral capsule, extended release), 1 cap(s), Oral, every morning, # 90 cap(s), 0 total refill(s), Maintenance, 1 cap(s) Oral every morning,x90 days, Pharmacy: [facility] [Not filled] The patient (is) World Wide Qualified. AM Dispo: Non-Fly Cleared for AFSC/MOS Duties: Y es Cleared for continued service: Yes Cleared for mobility duties: Would require waiver Cleared for participation in physical fitness program: Yes PHA/MHA/DRHA: UTD Visit deployment related: No Profile Reviewed Yes MEB in progress: No IMR/ASIMS Status: R eun Gage BSC, PA-C [facility] ([facility]) Mina ALCANTARA Please note that this dictation was completed with computer voice recognition software, Total Eclipse. Quite often unanticipated grammatical, syntax, homophones, and other interpretive errors are inadvertently transcribed by the computer software. Please disregard these errors and excuse any errors that have escaped final proofreading. If are any questions regarding documentation, please contact this provider directly. Extracted from:Title: Curriculum Development Coordinator Office Clinic Note Author: KAT MUELLER NP Date: 04/20/24 1. E ncounter for gynecological examination (general) (routine) with abnormal findings Cervical Cancer Screening: Pap Smear and HPV testing _ Breast Cancer Screening: Recommend starting mammograms at age 40 for average risk patients, per ACOG. CBE n ormal today.. Discussed breast self-awareness. Colon Cancer Screening: Initiate at age 45 for average risk patients. _ Bone Health: Recommend Bone Mineral Density testing at age 65 for average risk women. Encouraged weight bearing exercises, adequate Calcium and Vitamin D Immunizations: s tatus reviewed. Reproductive Life Planning: Using contraception. Mental Health: P atient declined any MH needs today Age-appropriate Prevention Education: Discussed tobacco and alcohol use; healthy eating and exercise; preventive screening for chronic diseases. 2. E ncounter for screening for malignant neoplasm of cervix Ordered: AP Cytology AUTOMATIC PACKER OPERATOR HPV High Risk (16/18/Other) 3. A bnormal cervical Papanicolaou smear 4. P ostcoital and contact bleeding Intermittent postcoital spotting likely r/t strings rubbing along columnar cells of endocervix. Silver Nitrate applied today to area. F/u if bleeding persists or prn new symptoms 5. E ncounter for routine checking of intrauterine contraceptive device Rvwd r/b/s.e of pargard IUD, FDA approved x 10 yrs. Placed 03/2015. Pt states shew will likely remove and replace with another Paragard when due Reviewed with patient discharge instructions. Written discharge instructions were provided to the patient. Recommended patient to follow up regularly for WWEs, s ooner as discussed above, or as needed for WH concerns, symptoms, or questions. Kat Mueller [facility] Women s Health Nurse Practitioner, Board Certified [address] [place] [address] [employer] [address] [place] [address] comm: Extracted from:Title: [facility] ADHD Author: JEWEL GAGE PA Date: 04/14/24 1. A DHD - Attention deficit disorder with hyperactivity VIRTUAL APPT Est dx. No contraindications to continued Adderall use. R eassuring vital signs. Decrease to Adderall XR 20 mg once daily dosing beginning on 01 May 2024 - Discussed drug holidays - Reviewed that Adderall can cause but not limited to: psychosis, anorexia, CVD, behavioral changes - F/u in 6 weeks via virtual appt for Adderall re-evaluation Ordered: dextroamphetamine-amphetamine(Add erall XR 20 mg oral capsule, extended release), 1 cap(s), Oral, every morning, # 30 cap(s), 0 total refill(s), Maintenance, 1 cap(s) Oral every morning,x30 days, Pharmacy: [facility] [Not filled] Capt Jewel Gage, MIKE, PA-C [facility] ([facility]) Mina ALCANTARA Please note that this dictation was completed with computer voice recognition software, Total Eclipse. Quite often unanticipated grammatical, syntax, homophones, and other interpretive errors are inadvertently transcribed by the computer software. Please disregard these errors and excuse any errors that have escaped final proofreading. If are any questions regarding documentation, please contact this provider directly. Extracted from:Title: [facility] Virtual MHA/PHA Author: SHERRIE MANDEL PA-C Date: 02/24/24 1. E XAM/ASSESSMENT, OCCUPATIONAL, SAUSAGE CUTTER PERIODIC HEALTH ASSESSMENT (PHA) PHA Type: Non-Fly Qualification: N ON WORLD WIDE QUALIFIED Profile: O N PROFILE: _ p ulmonary nodule 04/13/2024 IMR Status: RED H IV Waivers: None Arming Status: S ervice member does not arm Reviewed vp cardiovascular service line's PHAQ and EHR for the past twelve months t o include r eported height, weight, current medical conditions and deployment related health problems, traumatic brain injury screening, m edications, allergies, i mmunizations, medical readiness laboratory tests and occupational health records. Completed screenings and provided patient education as appropriate. MHA completed in ASIMS and copied to this record. Malthouse Laborer is aware of services available ([phone], [employer] One source, [facility], [employer], B , , embedded squadron resources, e mergency room, first shirt or others in access hospital daytonn of command, etc) and how to contact them if needed. Malthouse Laborer denies suicidal and homicidal ideation. Preventative services reviewed and discussed per age, race, and gender. Reviewed immunization history and assessed immunization status. Reviewed physical activity, s exual risk factors and previous STD testing date, including HIV. Reviewed readiness labs and occupational health examinations required. Compared medications reported by Malthouse Laborer to active medication list in MHSG/JLV and any variances were reconciled. Time spent in pt care, counseling and reviewing chart was approximately 2 0min. Patient informed PHA complete and ASIMS updated. Any complaints or issues identified while conducting the PHA have been addressed and/or the vp cardiovascular service line was instructed to return to their PCM for care. 2. A DHD - Attention deficit disorder with hyperactivity 38 y/o F w/ hx of ADHD Requires Adderall DW added 3. S creening due Patient is due for screening labs. Patient understands labs are fasting. Labs ordered. 4. 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 RECOMMENDED ENROLLING IN [place] BURN PIT REGISTRY. Also, OSD/DHA requires that the member's electronic health record be coded with the appropriate codes. Recommended to member that he/she registers in [place] by visiting the [place] website or by calling [phone]. Member voiced understanding and agreed to plan. 5. E xposure to polluted air, occupational Member responded affirmatively to burn pit and toxic airborne contaminant exposure screening. RECOMMENDED ENROLLING IN [place] BURN [place] REGIST[place]. Also, OSD/DHA requires that the member's electronic health record be coded with the appropriate codes. Recommended to member that he/she registers in [place] Registry by visiting the [place] website or by calling [phone]. Member voiced understanding and agreed to plan. 6. B suraj cell carcinoma of back Patient had BCC removed from back during Mohs procedure Requires yearly follow up 7. A bnormal cervical Papanicolaou smear 2005 A SCUS, HPV pos 2006 L OSIRIS 2009 N ILM ( HPV ordered, not sufficient sample to test) 2010 ASCUS, HPV neg 2011 NILM 2017 Unsat, HPV neg 2019 (no result, just record of pap collected civilian) 2022: current ASCUS HPV neg Due for pap smear. Patient instructed to make an appointment. 8. A neurysm of splenic artery Patient requires annual follow up due in Aug 2024. SHERRIE MANDEL, , [employer], BSC Physician Molder Hand, MPAS, PA-C Phase 2 Medical Readiness Cell Extracted from:Title: [facility] possible lung nodule Author: HARPREET VEE, DO Date: 12/25/23 1. N odule of lung incidental finding from outside facility, - discussed that we need her to bring copy of results/ report - will go ahead and repeat CT chest - no red flag symptoms at this time The patient (is ) World Wide Qualified. AM Dispo: Non-Fly Cleared for AFSC/MOS Duties: Yes Cleared for continued service: Yes Cleared for mobility duties: Yes Cleared for participation in physical fitness program: Yes PHA/MHA/DRHA: UTD. Visit deployment related: N o Profile Reviewed MEB in progress: No IMR/ASIMS Status: [X] Yellow Ordered: CT Chest w/ Contrast 2. C ough 2 weeks cough likely post viral URI - discussed with her that cough can last weeks - discussed that inhalers are not warranted at this time and in absence of wheezing would not be of benefit. - she does have evidence of post nasal drainage which is likely causing her symptoms - will trial Flonase, afrin, and Mucinex - return precautions discussed 3. A DHD - Attention deficit disorder with hyperactivity chronic controlled will refill Adderall XR 25mg QD for 90 days Orders: dextroamphetamine-amphetamine(Add erall XR 25 mg oral capsule, extended release), 1 cap(s), Oral, every morning, # 30 cap(s), 0 total refill(s), Maintenance, 1 cap(s) Oral every morning, Pharmacy: [facility] [Not filled] oxymetazoline nasal(Afrin 0.05% nasal spray), 2 spray(s), Nostril-Both, BID, Do not use for more than 3 days., # 15 mL, 0 total refill(s), Maintenance, 2 spray(s) Nostril-Both BID,Instr:Do not use for more than 3 days., Pharmacy: [facility] [Not filled] fluticasone nasal(Flonase Allergy Relief 50 mcg/inh nasal spray), 1 spray(s), Nostril-Both, Daily, # 16 g, 1 total refill(s), Maintenance, 1 spray(s) Nostril-Both Daily, Pharmacy: [facility] [Not filled] guaiFENesin(Mucinex 600 mg oral tablet, extended release), 1 tab(s), Oral, every 12 hr, # 20 tab(s), 0 total refill(s), Maintenance, 1 tab(s) Oral every 12 hr, Pharmacy: [facility] [Not filled] Harpreet Vee DO. Family Medicine Physician Capt. USATing Extracted from:Title: [facility] skin leison/ADHD/MDD. Author: ARCHIE NORMAN DO Date: 10/14/23 ADHD - Attention deficit disorder with hyperactivity Chronic, c ontrolled. N o c/o medication s/e or non-adherence. PDMP aware reviewed and appropriate. No concern for medication abuse. Recommendations: - Cardiovascular exam WNL - BP a t goalof <140/90 per JNC-8 guidelines - HR <100 - Discussed drug holidays on weekends and holidays - To monitor for misuse or diversion of stimulants, will have pt sign controlled substance agreement and require urine drug screening at f/u visit - F/u in 3 months for prescription renewal and ongoing management The patient (is ) World Wide Qualified. AM Dispo: Non-Fly Cleared for AFSC/MOS Duties: Yes Cleared for continued service: Yes Cleared for mobility duties: Yes Cleared for participation in physical fitness program: Yes PHA/MHA/DRHA: Due. Visit deployment related: N o Profile Reviewed MEB in progress: No IMR/ASIMS Status: [X] Green (no action), Member aware. Depression Chronic, c ontrolled. HPI and PE c/w MDD. No SI/HI. Good social support. Recommendations: - continue with CBT. - Pharmacologic management: - Continue with wellbutrin 150mg XR daily. - ER for SI/SA/HI - Follow up: 4 weeks Skin lesion Unknown chronicity. (at least 2 months.) Concern for BCC vs squamous vs amelanotic melanoma. -given h igh concern, reached out to Dermatology and was scheduled for same day at 1350. - f/u with DERM. Ordered: Referral Request 2.0 - [facility] Orders: dextroamphetamine-amphetamine(Add erall XR 25 mg oral capsule, extended release), 1 cap(s), Oral, every morning, # 90 cap(s), 0 total refill(s), Maintenance, 1 cap(s) Oral every morning, Pharmacy: [facility] [Last filled 10/14/23] buPROPion(Wellbutrin XL 150 mg/24 hours oral tablet, extended release), 1 tab(s), Oral, every 24 hr, # 90 tab(s), 0 total refill(s), Maintenance, 1 tab(s) Oral every 24 hr, Pharmacy: [facility] [Last filled 10/14/23] Capt Mensah DO, [employer], Family Physician [facility]Equity Structurer [facility] Residency Program in [place], [place] [address] [address] Extracted from:Title: ADHD f/u, Depression Author: NOHELIA NICOLE Date: 06/12/23 1. A ttention deficit hyperactivity disorder, predominantly inattentive type chronic, stable. Pt has been taking Adderall XR 30mg daily since 2006. She is interested in decreasing her dose and would like to d/c the medication eventually. Recommend decreasing to XR 25mg prn. Contact clinic in one month to re-evaluate. Pt voiced understanding and agreement with plan. Ordered: dextroamphetamine-amphetamine(Add erall XR 25 mg oral capsule, extended release), 1 cap(s), Oral, every morning, # 30 cap(s), 0 total refill(s), Maintenance, 1 cap(s) Oral every morning, Pharmacy: [facility] [Not filled] 2. D epression chronic, stable. Reviewed, PHQ-9/ALIE-7. No SI/HI. Pt was previously taking Wellbutrin a nd is interested in restarting. Tolerated medication well with good control of symptoms. MR x90 days. F/u in clinic in one month te re-evaluate. Pt voiced understanding and agreement with plan. ? Maj Nohelia Nicole PA-C [facility] [address] [place], [place] Ordered: Vitamin D 25 Hydroxy Level Orders: buPROPion(Wellbutrin XL 150 mg/24 hours oral tablet, extended release), 1 tab(s), Oral, every 24 hr, # 30 tab(s), 0 total refill(s), Maintenance, 1 tab(s) Oral every 24 hr, Pharmacy: [facility] [Not filled] Extracted from:Title: [place] AUTOMATIC PACKER OPERATOR Office Clinic Note Author: RACHAEL RIVERO DO Date: 03/07/23 1. I ntermenstrual bleeding Pap repeated today. With the 2019 result not available, reasonable to repeat anyway with hx of unsat and current symptoms. Discussed paraguard possibly causing some inflammation which is aggravated with more intense pelvic activity. Also discussed potential for endometrial polyp. There is not a visible cervical polyp and the IUD was not visible displaced. Recommended US to evaluate for abnormality. Medications for abnormal bleeding are typically for heavy menstrual bleeding with paraguard or unscheduled bleeding with the LNG IUD. Could still consider TXA or motrin for these occasions, but they are irregular/unscheduled. All questions asked/answered. Rachael Rivero DO, Maj MARKF Curriculum Development Coordinator Surgeon and Embalmer Assistant [place], [place] [phone] [facility] ad hoc forms reviewed, Active Duty member Future Appointments Appointment Date: 02/12/2025 01:20:00 PM Scheduled Provider: LOU GUIDRY PA, Family Medicine Location: [id number] Appointment Type: KARMA FTR Appointment Date: 02/25/2025 08:10:00 AM Scheduled Provider: MANAV MCINTOSH DC Location: [id number] Appointment Type: PATY FTR 01/28/[address] [place] [address] Functional Status Combined list of recent functional and cognitive assessments recorded at [employer] (VA).VA Functional [place] Measurement (FIM) Scale: 1 = Total Assistance (Subject = 0% +), 2 = Maximal Assistance (Subject = 25% +), 3 = Moderate Assistance (Subject = 50% +), 4 = Minimal Assistance (Subject = 75% +), 5 = Supervision, 6 = Modified [place] (Device), 7 = Complete [place] (Timely, Safely). Assessment Date/Time Source Assessment Type Assessment Skill Assessment Score Assessment Details No data available for this section
--- OUTSIDE RECORDS SUMMARY | 2025-01-28 09:36 | XMS_ITS | Clinical Summary ---
Author Organization [facility] Address [address] [place] [address] Care Team Providers Care Reduction Furnace Operator Helper Name Role Phone Bernie Nicole Primary Care Provider [phone] Allergies No known active allergies Medications No known medications Active Problems Problem Noted Date Diagnosed Date Abnormal cervical Papanicolaou smear 10/14/2024 Attention deficit hyperactivity disorder (ADHD) 10/14/2024 Basal cell carcinoma of back 10/14/2024 History of deployment 10/14/2024 Intermenstrual bleeding 10/14/2024 Occupational exposure to polluted air 10/14/2024 Disorder of spine 09/10/2024 Stiffness of right shoulder, not elsewhere class ified 09/10/2024 Dyspnea on exertion 05/25/2024 Solitary pulmonary nodule 02/04/2024 Splenic artery aneurysm 09/11/2022 Hemorrhagic ovarian cyst 02/24/2022 Immunizations Immunization Administration Dates Next Due Anthrax Vaccine 08/14/2018,06/03/2018 H1N1 Intranasal 2009 Influenza 07/15/2009 Hepatitis A/Hepatitis B(Twinrix) 03/08/2006,06/02,05/31/2005 Influenza (FluMist) 06/07/2015, 4,04/22/2013,03/31/2012 ,04/02/2011,04/20/2010,04/18/2009, 8,05/31/2005 Influenza (Generic) 05/15/2016,04/21/2014,2007,06/18/2006 Influenza Adult (Generic) 05/06/2023,03/2021,06/29/2020,05/14/2019 ,04/04/2018,04/22/2017 Meningococcal (Menomune) 05/25/2005 Polio IPV (Ipol) 05/25/2005 Td (TDVAX) 06/09/2021,05/25/2005 Tdap (Generic) 08/10/2010 Typhoid (Typhim ) 06/03/2018 Family History Relation Status Comments Father Mother Alive Social History Tobacco Use Types Packs/Day Years Used Date Smoking Tobacco: Former Cigarettes Q uit: 11/29/2016 Smokeless Tobacco: Never Alcohol Use Standard Drinks/Week Comments Not Currently 0 (1 standard drink = 0.6 oz pure alcohol) BEER OR VODKA 3 OR 4 PER YEAR Comments No Sex and Gender Information Value Date Recorded Sex Assigned at Not on file Legal Sex Female 9:37 PM CDT Gender Identity Not on file Sexual Orientation Not on file Last Filed Vital Signs Vital Sign Reading Time Taken Comments Blood Pressure 128/80 10/14/2024 9:27 AM CDT Pulse 84 10/14/2024 9:27 AM CDT Temperature 36.7 C (98.1 F) 02/24/2022 11:50 AM CDT Respiratory Rate 18 02/24/2022 11:50 AM CDT Oxygen Saturation 99% 02/24/2022 11:50 AM CDT Inhaled Oxygen Concentration - - Weight 67.1 kg (148 lb) 10/14/2024 9:27 AM CDT Height 162.6 cm (5' 4) 10/14/2024 9:27 AM CDT Body Mass Index 25.4 10/14/2024 9:27 AM CDT Plan of Treatment Health Maintenance Due Date Last Done Comments Cervical Cancer Screening Pa p Smear (Age 30 to 64) Every 3 Years 1984 Annual Physical 09/08/1987 Hepatitis C 2002 HPV Vaccines (1 - 3-dose SCD M series) 09/08/2011 Cervical Cancer Screening Pa p with HPV Testing (Age 30 to 64) Every 5 Years 2014 Cervical Cancer Screening wi th HPV 2014 COVID-19 Vaccine (2023-2 5 season) 2024 03/03/2021, 12/03/2020 Mammogram Screening 2024 DTaP, Tdap and Td Vaccines ( 3 - Td or Tdap) 06/09/2031 06/09/2021, 08/10/2010, 05/25/2005 Meningococcal Vaccine Aged Out 05/25/2005 No maddy paula eligible based on patient's age to complete this topic Hepatitis B Vaccines Completed 03/08/2006, 06/30/2005, 05/31/2005 Meningococcal B Vaccine Aged Out No l onger eligible based on patient's age to complete this topic Pneumococcal Vaccine: Pediatrics (0 to 5 Years) and At-Risk Patients (6 to 49 Years) Aged Out No longer eligible b ased on patient's age to complete this topic RSV Immunizations Under 20 Months Aged Out No longer eligible b ased on patient's age to complete this topic Insurance [facility] Advance Directives * Full Code (Latest Code Status on File) Date Activated Date Inactivated Comments 02/24/2022 2:14 AM 02/24/2022 5:58 PM Care Teams Reduction Furnace Operator Helper Relationship Specialty Start Date End Date Bernie Nicole PA [facility] [place] [address] PCP - General PHYSICIAN SENIOR ACCOUNT DIRECTOR 07/01/23
--- OUTSIDE RECORDS SUMMARY | 2025-01-28 09:36 | XMS_ITS | Clinical Summary ---
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 Gender Identity Not on file Sexual Orientation Not on file Plan of Treatment Health Maintenance Due Date Last Done Comments Hepatitis C Virus (HCV) Screening 1984 TdaP Immunization 1984 Human Papillomavirus (HPV) Immunization (1 - 3-dose series) 09/08/1999 Hepatitis B Immunization (1 of 3 - 19+ 3-dose series) 09/08/2003 Pap Smear 2005 Cervical Cancer Screening (CCS) 2014 HPV/Cotest 2014 SARS-COV-2 Immunization ( season) 2024 03/03/2021, 12/03/2020 Influenza Immunization (#1) 2025 Respiratory Syncytial Virus (RSV) Immunization (Adult) (1 - 1-dose 75+ series) 09/08/2059 Meningococcal Immunization (ACWY) Aged Out No longer eligible b ased on patient's age to complete this topic Pneumococcal Immunization Combined Aged Out No longer eligible b ased on patient's age to complete this topic Rotavirus Immunization Aged Out No lo nger eligible based on patient's age to complete this topic
== END 2025-01-28 09:13 | disposition home or self-care (01) ==
PROVIDERS: Visit Provider Internal Medicine Pulmonary Disease
DX: R91.1 Solitary pulmonary nodule (principal)
CPT/HCPCS: 78815; A9552